=== PATIENT | male | born 1975 | race Caucasian/White ===

== ENCOUNTER 2017-08-08 14:56 | Emergency (ER) | payer SELFPAY ==
[2017-08-08] MEDS ORDERED: PROCHLORPERAZINE EDISYLATE INJ 10 MG/2 ML VIAL IV ONE (17:34)
[2017-08-08] MEDS ORDERED: DIPHENHYDRAMINE HCL 50 MG/ML VIAL IV ONE ×2 (17:34→19:40)
[2017-08-08] MEDS ORDERED: NORMAL SALINE 1000 ML 1,000 ML IV ONE (17:34)
[2017-08-08] MEDS ORDERED: KETOROLAC TROMETHAMINE INJ/PF 30 MG/1 ML SDV IV ONE (17:34)
--- NOTE | 2017-08-08 17:36 | ER Document Report ---
HPI - HPI Patient complains to provider of: Viral illness Onset: Other - 2 weeks Onset/Duration: Persistent Quality of pain: Achy Pain Level: 3 Context: Patient presents complaining of headache pain off and on for the past 2 weeks. Patient also reports nausea and diarrhea. Patient states he has had diarrhea 3 episodes today. Patient reports cough for the past 3 days. Patient denies any vomiting. Patient states that his significant other was here recently with the same symptoms. Associated Symptoms: Nonproductive cough, Diarrhea, Headache, Nausea, Rhinnorhea. denies: Chest pain, Vomiting Exacerbated by: Denies Relieved by: Denies Similar symptoms previously: No Recently seen / treated by doctor: No - ROS ROS below otherwise negative: Yes Systems Reviewed and Negative: Yes All other systems reviewed and negative - CONSTITUTIONAL Constitutional: REPORTS: Chills. DENIES: Fever - EENT EENT: REPORTS: Congestion - NEURO Neurology: REPORTS: Headache - RESPIRATORY Respiratory: REPORTS: Coughing - GASTROINTESTINAL Gastrointestinal: REPORTS: Nausea, Diarrhea. DENIES: Patient vomiting - MUSCULOSKELETAL Musculoskeletal: DENIES: Extremity pain, Back Pain - DERM Skin Color: Normal Skin Problems: None Past Medical History - General Information source: Patient - Social History Smoking Status: Current Every Day Smoker Smoking Education Provided: Yes Frequency of alcohol use: None Drug Abuse: None Occupation: construction Lives with: Spouse/Significant other Family History: Reviewed & Not Pertinent - Medical History Medical History: Negative Surgical Hx: Negative Vertical Provider Document - CONSTITUTIONAL Agree With Documented VS: Yes Exam Limitations: No Limitations General Appearance: WD/WN, No Apparent Distress - INFECTION CONTROL TRAVEL OUTSIDE OF THE [place] IN LAST 30 DAYS: No - HEENT HEENT: Atraumatic, Normocephalic. negative: Pharyngeal Exudate, Pharyngeal Tenderness, Pharyngeal Erythema, Tympanic Membrane Red, Tympanic Membrane Bulging - NECK Neck: Normal Inspection, Supple. negative: Lymphadenopathy-Left, Lymphadenopathy-Right Notes: No meningismus - RESPIRATORY Respiratory: Breath Sounds Normal, No Respiratory Distress, Chest Non-Tender O2 Sat by Pulse Oximetry: 98 - CARDIOVASCULAR Cardiovascular: Regular Rate, Regular Rhythm, No Murmur - GI/ABDOMEN Gastrointestinal: Abdomen Soft, Abdomen Tender - epigastric, No Organomegaly, Normal Bowel Sounds - BACK Back: Normal Inspection. negative: CVA Tenderness-Right, CVA Tenderness-Left - MUSCULOSKELETAL/EXTREMETIES Musculoskeletal/Extremeties: MILADY ESTEBAN - NEURO Level of Consciousness: Awake, Alert, Appropriate Motor/Sensory: No Motor Deficit - DERM Integumentary: Warm, Dry, No Rash Course - Re-evaluation Re-evalutation: 08/08/17 Patient with symptoms consistent with viral illness. Patient without meningeal irritation symptoms. Abdomen soft, nontender. No vomiting or diarrhea during his ER stay. Patient is specifically requesting Phenergan to manage his symptoms as this is what his girlfriend was given and seemed to help. Discussed worsening symptoms that patient should return immediately for. Patient verbalized understanding and agrees with plan of care - Vital Signs Vital signs: Temp Pulse Resp BP Pulse Ox 98.4 F 86 20 118/62 98 08/08/17 15:28 08/08/17 15:28 08/08/17 15:28 08/08/17 15:28 08/08/17 15:28 - Laboratory Result Diagrams: 08/08/17 18:30 08/08/17 18:30 Laboratory results interpreted by me: 08/08/17 19:41 Labs- Entire Visit 08/08/17 08/08/17 18:30 18:30 WBC 9.5 RBC 4.82 Hgb 15.0 Hct 44.4 MCV 92 MCH 31.1 MCHC 33.7 RDW 13.7 Plt Count 295 Seg Neutrophils % 63.6 Lymphocytes % 27.6 Monocytes % 4.9 Eosinophils % 2.5 Basophils % 1.4 Absolute Neutrophils 6.1 Absolute Lymphocytes 2.6 Absolute Monocytes 0.5 Absolute Eosinophils 0.2 Absolute Basophils 0.1 Sodium 140.2 Potassium 4.1 Chloride 106 Carbon Dioxide 29 Anion Gap 5 BUN 15 Creatinine 0.86 Est GFR ( Amer) > 60 Est GFR (Non-Af Amer) > 60 Glucose 81 Calcium 9.0 Total Bilirubin 0.3 Direct Bilirubin 0.3 Neonat Total Bilirubin Not Reportable Neonat Direct Bilirubin Not Reportable Neonat Indirect Bili Not Reportable AST 29 ALT 28 Alkaline Phosphatase 56 Total Protein 6.1 L Albumin 3.6 Lipase 86.2 - Diagnostic Test Radiology reviewed: Reports reviewed Discharge - Discharge Clinical Impression: Nausea, Cough Headache Qualifiers: Headache type: unspecified Headache chronicity pattern: unspecified pattern Intractability: not intractable Qualified Code(s): R51 - Headache Diarrhea Qualifiers: Diarrhea type: unspecified type Qualified Code(s): R19.7 - Diarrhea, unspecified Condition: Stable Disposition: HOME, SELF-CARE Instructions: Acetaminophen, Intravenous Compazine for Headaches ([facility]), Headache ([facility]), Toradol Injection ([facility]), Viral Syndrome ([facility]) Additional Instructions: Return immediately for any new or worsening symptoms Followup with your primary care provider, call tomorrow to make a followup appointment Prescriptions: Butalb/Acetaminophen/Caffeine [Fioricet (50-325-40 mg) Tablet] 1 - 2 tab PO Q4H PRN #12 each PRN Reason: Promethazine HCl [Phenergan 25 mg Tablet] 25 mg PO Q6H PRN #10 tablet PRN Reason: Forms: Smoking Cessation Education, Return to Work Referrals: JODI KOWALSKI MD [NO LOCAL MD] - Follow up tomorrow
--- NOTE | 2017-08-08 17:58 | RADIOLOGY REPORT (SQ) ---
EXAM DESCRIPTION: CHEST PA/LAT COMPLETED DATE/TIME: 08/08/2017 5:47 pm REASON FOR STUDY: cough COMPARISON: None. EXAM PARAMETERS: NUMBER OF VIEWS: two views TECHNIQUE: Digital Frontal and Lateral radiographic views of the chest acquired. RADIATION DOSE: NA LIMITATIONS: none FINDINGS: LUNGS AND PLEURA: No opacities, masses or pneumothorax. No pleural effusion. MEDIASTINUM AND HILAR STRUCTURES: No masses or contour abnormalities. HEART AND VASCULAR STRUCTURES: Heart normal size. No evidence for failure. BONES: No acute findings. HARDWARE: None in the chest. OTHER: No other significant finding. IMPRESSION: NO SIGNIFICANT RADIOGRAPHIC FINDING IN THE CHEST. TECHNICAL DOCUMENTATION: JOB ID: [id number] [employer]- All Rights Reserved Reading location - IP/workstation name: [email or web address]
[2017-08-08 19:00] LABS: ABSOLUTE BASOPHILS # (AUTO) 0.1 10^3/uL (0.0-0.2); ABSOLUTE EOSINOPHILS # (AUTO) 0.2 10^3/uL (0.0-0.6); ABSOLUTE LYMPHOCYTES (AUTO) 2.6 10^3/uL (0.5-4.7); ABSOLUTE MONOCYTES (AUTO) 0.5 10^3/uL (0.1-1.4); ABSOLUTE NEUT (AUTO) 6.1 10^3/uL (1.7-8.2); BASOPHILS % (AUTO) 1.4 % (0-2); EOSINOPHILS % (AUTO) 2.5 % (0-6); HEMATOCRIT 44.4 % (37.9-51.0); LYMPHOCYTES % (AUTO) 27.6 % (13-45); MEAN CORPUSCULAR HEMOGLOBIN 31.1 pg (27.0-33.4); MEAN CORPUSCULAR HGB CONC 33.7 g/dL (32.0-36.0); MEAN CORPUSCULAR VOLUME 92 fl (80-97); MONOCYTES % (AUTO) 4.9 % (3-13); PLATELET COUNT 295 10^3/uL (150-450); RED BLOOD COUNT 4.82 10^6/uL (4.35-5.55); RED CELL DISTRIBUTION WIDTH 13.7 % (11.5-14.0); SEGMENTED NEUTROPHILS % (AUTO) 63.6 % (42-78); TOTAL CELLS COUNTED % (AUTO) 100 %; WHITE BLOOD COUNT 9.5 10^3/uL (4.0-10.5)
[2017-08-08 19:22] LABS: ALANINE AMINOTRANSFERASE 28 U/L (21-72); ALBUMIN 3.6 g/dL (3.5-5.0); ALKALINE PHOSPHATASE 56 U/L (38-126); ANION GAP 5 (5-19); ASPARTATE AMINO TRANSFERASE 29 U/L (17-59); BILIRUBIN,DIRECT 0.3 mg/dL (0.0-0.4); BILIRUBIN,TOTAL 0.3 mg/dL (0.2-1.3); BLOOD UREA NITROGEN 15 mg/dL (7-20); CARBON DIOXIDE 29 mmol/L (22-30); CHLORIDE 106 mmol/L (98-107); GLUCOSE 81 mg/dL (75-110); LIPASE 86.2 U/L (23-300); POTASSIUM 4.1 mmol/L (3.6-5.0); SODIUM 140.2 mmol/L (137-145); TOTAL PROTEIN 6.1 g/dL (6.3-8.2)
[2017-08-08] MEDS ORDERED: BUTALB/ACETAMINOPHEN/CAFFEINE 1 TAB EACH PO ONE (19:40)
[2017-08-08 20:09] VITALS: BP 115/74
== END 2017-08-08 20:09 | disposition home or self-care (01) ==
LOC: ER 14:56
DX: B34.9 Viral infection, unspecified (principal); R11.0 Nausea; R19.7 Diarrhea, unspecified; R05 Cough; F17.210 Nicotine dependence, cigarettes, uncomplicated
CPT/HCPCS: 99284; 96361; 96374; 96375; 36415; 83690; 85025; 80053; 71046; J3490; J1200; J1885; J0780; J7030

== ENCOUNTER 2018-11-02 10:56 | Inpatient (IN) | payer OTHER ==
[~2018-11-02 10:56] MED LIST: ROCURONIUM BROMIDE INJ 50 MG/5 ML VIAL IV ONE
[2018-11-02] MEDS: NORMAL SALINE 1000 ML 1,000 ML IV PRN ×4 (11:00→12:55)
[2018-11-02] MEDS ORDERED: PROPOFOL 1,000 MG/100 ML INFUS..BTL IV ONE (11:02)
[2018-11-02] MEDS ORDERED: PROPOFOL INJ 200 MG/20 ML VIAL IV ONE (11:08)
--- NOTE | 2018-11-02 11:08 | ER Document Report ---
ED Cardiac - General Stated Complaint: POSSIBLE SEIZURE Time Seen by Provider: 11/02/18 11:04 Notes: 42-year-old male to the ER via EMS for altered mental status. Patient was found on the side of the road. Unresponsive. CPR was begun. Apparently patient was seizing. Multiple seizures were witnessed. When EMS arrived they were able to get 2 large-bore IVs in the patient. Patient had a temperature of 101. 5 mg of Ativan as well as 5 mg of Versed given. Patient brought to the emergency department and was being bagged. Was completely unresponsive and with agonal breathing. Oxygen saturation was 90%. Patient was immediately seen at the bedside and immediately intubated. TRAVEL OUTSIDE OF THE [place] IN LAST 30 DAYS: No - Related Data Allergies/Adverse Reactions: No Known Allergies Allergy (Verified 08/08/17 15:00) Past Medical History - General Cannot obtain history due to: Intubated, Unstable vital signs, Altered mental status - Social History Smoking Status: Smoker,Current Status Unk Family History: Reviewed & Not Pertinent Renal/ Medical History: Denies: Hx Peritoneal Dialysis Review of Systems - Review of Systems -: Yes ROS unobtainable due to patient's medical condition Physical Exam - Vital signs Vitals: Resp 39 H 11/02/18 10:57 Interpretation: Tachycardic, Hypoxic, Febrile - General General appearance: Unresponsive In distress: Severe - HEENT Head: Normocephalic, Atraumatic Eyes: Normal Pupils: PERRL Mucous membranes: Dry - Respiratory Respiratory status: Depressed respirations Chest status: Nontender Breath sounds: Normal Chest palpation: Normal - Cardiovascular Rhythm: Tachycardia Heart sounds: Normal auscultation Murmur: No - Abdominal Inspection: Normal Distension: No distension Bowel sounds: Normal Tenderness: Nontender Organomegaly: No organomegaly - Back Back: Normal, Nontender - Extremities General upper extremity: Normal inspection, Nontender, Normal color, Normal temperature General lower extremity: Normal inspection, Nontender, Normal color, Normal temperature. No: Mecca's sign - Neurological Neuro grossly intact: No Orientation: No: AAOx4 Elia Coma Scale Eye Opening: None Elia Coma Scale Verbal: None Chadwick Coma Scale Motor: None Chadwick Coma Scale Total: 3 - Skin Skin Temperature: Warm Skin Moisture: Dry Skin Color: Normal Course - Re-evaluation Re-evalutation: 11/02/18 12:55 Patient was intubated immediately. Placed on monitor. Blood pressure was initially low so 2 L of normal saline ordered. Lactate, ABG blood cultures ordered. Blood pressure began to come up. Patient was placed on propofol drip. Indwelling Aguilar temp showed a temperature of 103. Rapid cooling techniques begun. pH is 7.1. Concern for sepsis versus meningitis so initial dose of Rocephin and vancomycin ordered. Patient maintain on the ventilator. Will admit to the ICU at this time. Drug screen came back extremely elevated for methamphetamine. Likely patient has a heat injury with methamphetamine induced seizures and overdose with potential heat injury. Will maintain sedation and intubation to increase the survivability of potential overwhelming heat injury. We will keep paralysis as well which will help to cure the patient. Rectal Tylenol as well as Toradol given. Radiology will assist with lumbar puncture. Hospitalist has been consulted. Anticipate admit at this time. 11/02/18 12:57 Laboratory 11/02/18 11/02/18 11/02/18 11:01 11:01 11:15 WBC 13.7 H RBC 4.41 Hgb 13.2 L Hct 40.7 MCV 92 MCH 29.9 MCHC 32.4 RDW 14.0 Plt Count 412 Seg Neutrophils % 67.5 Lymphocytes % 25.0 Monocytes % 6.4 Eosinophils % 0.7 Basophils % 0.4 Absolute Neutrophils 9.2 H Absolute Lymphocytes 3.4 Absolute Monocytes 0.9 Absolute Eosinophils 0.1 Absolute Basophils 0.1 PT INR APTT Carbonic Acid HCO3/H2CO3 Ratio ABG pH ABG pCO2 ABG pO2 ABG HCO3 ABG Total CO2 ABG O2 Saturation ABG Base Excess FiO2 Sodium Potassium Chloride Carbon Dioxide Anion Gap BUN Creatinine Est GFR ( Amer) Est GFR (Non-Af Amer) Glucose Calcium Magnesium Total Bilirubin Direct Bilirubin Neonat Total Bilirubin Neonat Direct Bilirubin Neonat Indirect Bili AST ALT Alkaline Phosphatase Creatine Kinase Total Protein Albumin Urine Color DENILSON Urine Appearance SLIGHTLY-CLOUDY Urine pH 5.0 Ur Specific [place] 1.025 Urine Protein 30 H Urine Glucose (UA) NEGATIVE Urine Ketones TRACE H Urine Blood NEGATIVE Urine Nitrite NEGATIVE Urine Bilirubin NEGATIVE Urine Urobilinogen NEGATIVE Ur Leukocyte Esterase NEGATIVE Urine WBC (Auto) 5 Urine RBC (Auto) 16 Squamous Epi Cells Auto <1 Urine Mucus (Auto) MANY Urine Ascorbic Acid NEGATIVE Urine Opiates Screen NEGATIVE Urine Methadone Screen NEGATIVE Ur Barbiturates Screen NEGATIVE Ur Phencyclidine Scrn NEGATIVE Ur Amphetamines Screen U Benzodiazepines Scrn NEGATIVE Urine Cocaine Screen NEGATIVE U Marijuana (THC) Screen UNCONFIRMED POSITIVE Serum Alcohol 11/02/18 11/02/18 11/02/18 11:15 11:15 11:15 WBC RBC Hgb Hct MCV MCH MCHC RDW Plt Count Seg Neutrophils % Lymphocytes % Monocytes % Eosinophils % Basophils % Absolute Neutrophils Absolute Lymphocytes Absolute Monocytes Absolute Eosinophils Absolute Basophils PT 14.4 INR 1.07 APTT 22.9 L Carbonic Acid HCO3/H2CO3 Ratio ABG pH ABG pCO2 ABG pO2 ABG HCO3 ABG Total CO2 ABG O2 Saturation ABG Base Excess FiO2 Sodium 146.8 H Potassium 4.0 Chloride 107 Carbon Dioxide 12 L Anion Gap 28 H BUN 11 Creatinine 1.29 H Est GFR ( Amer) > 60 Est GFR (Non-Af Amer) > 60 Glucose 115 H Calcium 9.8 Magnesium 2.4 H Total Bilirubin 0.4 Direct Bilirubin 0.3 Neonat Total Bilirubin Not Reportable Neonat Direct Bilirubin Not Reportable Neonat Indirect Bili Not Reportable AST 32 ALT 14 L Alkaline Phosphatase 47 Creatine Kinase 169 Total Protein 6.2 L Albumin 4.1 Urine Color Urine Appearance Urine pH Ur Specific [place] Urine Protein Urine Glucose (UA) Urine Ketones Urine Blood Urine Nitrite Urine Bilirubin Urine Urobilinogen Ur Leukocyte Esterase Urine WBC (Auto) Urine RBC (Auto) Squamous Epi Cells Auto Urine Mucus (Auto) Urine Ascorbic Acid Urine Opiates Screen Urine Methadone Screen Ur Barbiturates Screen Ur Phencyclidine Scrn Ur Amphetamines Screen U Benzodiazepines Scrn Urine Cocaine Screen U Marijuana (THC) Screen Serum Alcohol < 10 11/02/18 11:31 WBC RBC Hgb Hct MCV MCH MCHC RDW Plt Count Seg Neutrophils % Lymphocytes % Monocytes % Eosinophils % Basophils % Absolute Neutrophils Absolute Lymphocytes Absolute Monocytes Absolute Eosinophils Absolute Basophils PT INR APTT Carbonic Acid 1.40 H HCO3/H2CO3 Ratio 12:1 ABG pH 7.18 L* ABG pCO2 46.6 H ABG pO2 550.9 H ABG HCO3 16.9 L ABG Total CO2 18.4 L ABG O2 Saturation 99.8 H ABG Base Excess -11.3 FiO2 100% Sodium Potassium Chloride Carbon Dioxide Anion Gap BUN Creatinine Est GFR ( Amer) Est GFR (Non-Af Amer) Glucose Calcium Magnesium Total Bilirubin Direct Bilirubin Neonat Total Bilirubin Neonat Direct Bilirubin Neonat Indirect Bili AST ALT Alkaline Phosphatase Creatine Kinase Total Protein Albumin Urine Color Urine Appearance Urine pH Ur Specific [place] Urine Protein Urine Glucose (UA) Urine Ketones Urine Blood Urine Nitrite Urine Bilirubin Urine Urobilinogen Ur Leukocyte Esterase Urine WBC (Auto) Urine RBC (Auto) Squamous Epi Cells Auto Urine Mucus (Auto) Urine Ascorbic Acid Urine Opiates Screen Urine Methadone Screen Ur Barbiturates Screen Ur Phencyclidine Scrn Ur Amphetamines Screen U Benzodiazepines Scrn Urine Cocaine Screen U Marijuana (THC) Screen Serum Alcohol Cervical Spine CT 11/02/18 11:06 IMPRESSION: NO ACUTE OR SIGNIFICANT FINDINGS IN THE CERVICAL SPINE. Chest X-Ray 11/02/18 11:06 IMPRESSION: 1. LIFE LINES DESCRIBED. 2. NO ACUTE RADIOGRAPHIC FINDING IN THE CHEST. Head CT 11/02/18 11:06 IMPRESSION: NORMAL BRAIN CT WITHOUT CONTRAST. EVIDENCE OF ACUTE STROKE: NO. - Vital Signs Vital signs: Temp Pulse Resp BP Pulse Ox 96.2 F L 15 115/83 100 11/02/18 15:41 11/02/18 15:41 11/02/18 15:41 11/02/18 15:41 - Laboratory Result Diagrams: 11/02/18 11:15 11/02/18 11:15 Laboratory results interpreted by me: 11/02/18 11/02/18 11/02/18 11:01 11:15 11:15 WBC 13.7 H Hgb 13.2 L Absolute Neutrophils 9.2 H APTT Carbonic Acid ABG pH ABG pCO2 ABG pO2 ABG HCO3 ABG Total CO2 ABG O2 Saturation Sodium 146.8 H Carbon Dioxide 12 L Anion Gap 28 H Creatinine 1.29 H Glucose 115 H Lactic Acid Magnesium 2.4 H ALT 14 L Total Protein 6.2 L Urine Protein 30 H Urine Ketones TRACE H 11/02/18 11/02/18 11/02/18 11:15 11:15 11:31 WBC Hgb Absolute Neutrophils APTT 22.9 L Carbonic Acid 1.40 H ABG pH 7.18 L* ABG pCO2 46.6 H ABG pO2 550.9 H ABG HCO3 16.9 L ABG Total CO2 18.4 L ABG O2 Saturation 99.8 H Sodium Carbon Dioxide Anion Gap Creatinine Glucose Lactic Acid 15.8 H Magnesium ALT Total Protein Urine Protein Urine Ketones - EKG Interpretation by Nh EKG shows normal: Ingraham, Intervals, QRS Complexes, ST-T Waves Rate: Tachycardia Procedures - Intubation Orotracheal Airway evaluation: Normal anatomy Mallampati Classification: Class 1 Medications: Diprivan Intubation method: Orotracheal Blade type: Alyson Blade size: 3 Equipment used: Glidescope ETT size: 7.5 ETT secured at: Teeth ETT secured at (cm): 23 Breath Sounds after Intubation: Equal End tidal CO2 confirmed: Yes Ventilator settings: SIMV Post Intubation Xray: Yes Intubation Complications: No complications Critical Care Note - Critical Care Note Total time excluding time spent on procedures (mins): 60 Comments: Tachycardia, hypoxia, airway, vent management Discharge - Discharge Clinical Impression: Acute alteration in mental status, Status epilepticus, Methamphetamine use Heatstroke Qualifiers: Encounter type: initial encounter Qualified Code(s): T67.0XXA - Heatstroke and sunstroke, initial encounter Condition: Good Disposition: ADMITTED INPATIENT Admitting Provider: Lindsey (Hospitalist) Unit Admitted: ICU
[2018-11-02] MEDS ORDERED: ROCURONIUM BROMIDE INJ 50 MG/5 ML VIAL IV ONE (11:09)
[2018-11-02] MEDS: PROPOFOL 1,000 MG/100 ML INFUS..BTL IV PRN ×2 (11:10→15:19)
[2018-11-02] MEDS ORDERED: LEVETIRACETAM 500 MG/NACL-ISO 500 MG/100 ML RTUPB IV ONE ×2 (11:10→23:17)
[2018-11-02 11:28] LABS: APPEARANCE,URINE SLIGHTLY-CLOUDY; BILIRUBIN,URINE NEGATIVE (NEGATIVE); COLOR,URINE AMBER; GLUCOSE, URINE NEGATIVE (NEGATIVE); KETONES,URINE TRACE mg/dL (NEGATIVE); LEUKOCYTE ESTERASE,URINE NEGATIVE (NEGATIVE); NITRITE,URINE NEGATIVE (NEGATIVE); PROTEIN,URINE 30 mg/dL (NEGATIVE); URINE SPECIFIC GRAVITY 1.025; UROBILINOGEN,URINE NEGATIVE mg/dL (<2.0)
[2018-11-02 11:30] LABS: ABSOLUTE BASOPHILS # (AUTO) 0.1 10^3/uL (0.0-0.2); ABSOLUTE EOSINOPHILS # (AUTO) 0.1 10^3/uL (0.0-0.6); ABSOLUTE LYMPHOCYTES (AUTO) 3.4 10^3/uL (0.5-4.7); ABSOLUTE MONOCYTES (AUTO) 0.9 10^3/uL (0.1-1.4); ABSOLUTE NEUT (AUTO) 9.2 10^3/uL (1.7-8.2); BASOPHILS % (AUTO) 0.4 % (0-2); EOSINOPHILS % (AUTO) 0.7 % (0-6); HEMATOCRIT 40.7 % (37.9-51.0); HEMOGLOBIN 13.2 g/dL (13.5-17.0); MEAN CORPUSCULAR HEMOGLOBIN 29.9 pg (27.0-33.4); MEAN CORPUSCULAR HGB CONC 32.4 g/dL (32.0-36.0); MEAN CORPUSCULAR VOLUME 92 fl (80-97); MONOCYTES % (AUTO) 6.4 % (3-13); PLATELET COUNT 412 10^3/uL (150-450); RED BLOOD COUNT 4.41 10^6/uL (4.35-5.55); SEGMENTED NEUTROPHILS % (AUTO) 67.5 % (42-78); TOTAL CELLS COUNTED % (AUTO) 100 %; WHITE BLOOD COUNT 13.7 10^3/uL (4.0-10.5)
[2018-11-02 11:36] LABS: INTERNATIONAL RATION (INR) 1.07; PARTIAL THROMBOPLASTIN TIME 22.9 SEC (23.5-35.8); PROTHROMBIN TIME 14.4 SEC (11.4-15.4)
[2018-11-02 11:47] LABS: URINE BARBITURATES SCREEN NEGATIVE; URINE BENZODIAZEPINES SCREEN NEGATIVE; URINE COCAINE SCREEN NEGATIVE; URINE MARIJUANA (THC) SCREEN UNCONFIRMED POSITIVE; URINE METHADONE SCREEN NEGATIVE; URINE PHENCYCLIDINE SCREEN NEGATIVE
[2018-11-02 11:48] LABS: ARTERIAL BLOOD BASE EXCESS -11.3 mmol/L; ARTERIAL BLOOD HCO3 16.9 mmol/L (20-24); ARTERIAL BLOOD O2 SATURATION 99.8 % (94-98); ARTERIAL BLOOD PCO2 46.6 mmHg (35-45); ARTERIAL BLOOD PO2 550.9 mmHg (80-100); ARTERIAL BLOOD TOTAL CO2 18.4 mmol/L (23-27)
[2018-11-02 11:50] LABS: ARTERIAL BLOOD FIO2 100%
[2018-11-02 11:51] LABS: ARTERIAL BLOOD PH 7.18 (7.35-7.45)
--- NOTE | 2018-11-02 11:56 | RADIOLOGY REPORT (SQ) ---
EXAM DESCRIPTION: CHEST SINGLE VIEW COMPLETED DATE/TIME: 11/02/2018 11:45 am REASON FOR STUDY: ET AND NG TUBE PLACEMENT COMPARISON: None. EXAM PARAMETERS: NUMBER OF VIEWS: One view. TECHNIQUE: Single frontal radiographic view of the chest acquired. RADIATION DOSE: NA LIMITATIONS: None. FINDINGS: LUNGS AND PLEURA: No opacities, masses or pneumothorax. No pleural effusion. MEDIASTINUM AND HILAR STRUCTURES: No masses. Contour normal. HEART AND VASCULAR STRUCTURES: Heart normal in size. Normal vasculature. BONES: No acute findings. HARDWARE: Tip of the endotracheal tube located 3 cm proximal to the linda. The image of the chest d emonstrates the nasogastric tube deviated to the left side of the chest consistent with a location in the airway. The other image of the lower chest and upper abdomen demonstrate the tip of the nasogas tric tube in the region of the stomach. OTHER: No other significant finding. IMPRESSION: 1. LIFE LINES DESCRIBED. 2. NO ACUTE RADIOGRAPHIC FINDING IN THE CHEST. TECHNICAL DOCUMENTATION: JOB ID: [id number] [employer]- All Rights Reserved Reading location - IP/workstation name: [email or web address]
[2018-11-02 11:57] LABS: ALANINE AMINOTRANSFERASE 14 U/L (21-72); ALBUMIN 4.1 g/dL (3.5-5.0); ALKALINE PHOSPHATASE 47 U/L (38-126); ASPARTATE AMINO TRANSFERASE 32 U/L (17-59); BILIRUBIN,DIRECT 0.3 mg/dL (0.0-0.4); BILIRUBIN,TOTAL 0.4 mg/dL (0.2-1.3); BLOOD UREA NITROGEN 11 mg/dL (7-20); CALCIUM 9.8 mg/dL (8.4-10.2); CHLORIDE 107 mmol/L (98-107); GLUCOSE 115 mg/dL (75-110); TOTAL PROTEIN 6.2 g/dL (6.3-8.2)
[2018-11-02] MEDS ORDERED: CEFTRIAXONE 2 GM/D5W RTU 2 GM/50 ML RTUPB IV ONE (11:57)
[2018-11-02] MEDS ORDERED: KETOROLAC TROMETHAMINE INJ/PF 30 MG/1 ML SDV IV ONE (11:57)
[2018-11-02 11:58] LABS: ALCOHOL < 10 mg/dL (NONE DETECTED)
[2018-11-02 12:02] LABS: ANION GAP 28 (5-19); CARBON DIOXIDE 12 mmol/L (22-30); SODIUM 146.8 mmol/L (137-145)
--- NOTE | 2018-11-02 12:08 | RADIOLOGY REPORT (SQ) ---
EXAM DESCRIPTION: CT CERVICAL SPINE WITHOUT COMPLETED DATE/TIME: 11/02/2018 11:57 am REASON FOR STUDY: found down COMPARISON: 12/14/2009. TECHNIQUE: Axial images acquired through the cervical spine without intravenous contrast. Images re viewed with lung, soft tissue and bone windows. Reconstructed coronal and sagittal MPR images review ed. Images stored on PACS. All CT scanners at this facility use dose modulation, iterative reconstruction, and/or weight based d osing when appropriate to reduce radiation dose to as low as reasonably achievable (ALARA). [facility]: Dose Right [facility]: CareDose [facility]: Dose Right [facility]: Teradose 4D [facility]: [employer] RADIATION DOSE: CT Rad equipment meets quality standard of care and radiation dose reduction techniq ues were employed. CTDIvol: 20.5 mGy. DLP: 438 mGy-cm. mGy. LIMITATIONS: None. FINDINGS: ALIGNMENT: Anatomic. MINERALIZATION: Normal. VERTEBRAL BODIES: No fractures or dislocation. DISCS: No significant disc disease. FACETS, LATERAL MASSES, POSTERIOR ELEMENTS: No fractures. No dislocation. No acute findings. HARDWARE: None in the spine. VISUALIZED RIBS: No fractures. LUNG APICES AND SOFT TISSUES: No significant or acute findings. OTHER: No other significant finding. IMPRESSION: NO ACUTE OR SIGNIFICANT FINDINGS IN THE CERVICAL SPINE. TECHNICAL DOCUMENTATION: JOB ID: [id number] Quality ID # [id number]: Final reports with documentation of one or more dose reduction techniques (e.g., Au tomated exposure control, adjustment of the mA and/or kV according to patient size, use of iterative reconstruction technique) 2010 [employer]- All Rights Reserved Reading location - IP/workstation name: [email or web address]
--- NOTE | 2018-11-02 12:09 | RADIOLOGY REPORT (SQ) ---
EXAM DESCRIPTION: CT HEAD WITHOUT COMPLETED DATE/TIME: 11/02/2018 11:57 am REASON FOR STUDY: altered COMPARISON: 12/14/2009. TECHNIQUE: Axial images acquired through the brain without intravenous contrast. Images reviewed wi th bone, brain and subdural windows. Additional sagittal and coronal reconstructions were generated. Images stored on PACS. All CT scanners at this facility use dose modulation, iterative reconstruction, and/or weight based d osing when appropriate to reduce radiation dose to as low as reasonably achievable (ALARA). [facility]: Dose Right [facility]: CareDose [facility]: Dose Right [facility]: Teradose 4D [facility]: [employer] RADIATION DOSE: CT Rad equipment meets quality standard of care and radiation dose reduction techniq ues were employed. CTDIvol: 53.2 mGy. DLP: 1044 mGy-cm. mGy. LIMITATIONS: None. FINDINGS: VENTRICLES: Normal size and contour. CEREBRUM: No masses. No hemorrhage. No midline shift. No evidence for acute infarction. Normal gra y/white matter differentiation. No areas of low density in the white matter. CEREBELLUM: No masses. No hemorrhage. No alteration of density. No evidence for acute infarction. EXTRAAXIAL SPACES: No fluid collections. No masses. ORBITS AND GLOBE: No intra- or extraconal masses. Normal contour of globe without masses. CALVARIUM: No fracture. PARANASAL SINUSES: No fluid or mucosal thickening. SOFT TISSUES: No mass or hematoma. OTHER: No other significant finding. IMPRESSION: NORMAL BRAIN CT WITHOUT CONTRAST. EVIDENCE OF ACUTE STROKE: NO. COMMENT: Quality ID # 436: Final reports with documentation of one or more dose reduction techniques (e.g., Automated exposure control, adjustment of the mA and/or kV according to patient size, use of iterative reconstruction technique) TECHNICAL DOCUMENTATION: JOB ID: [id number] [employer]- All Rights Reserved Reading location - IP/workstation name: [email or web address]
[2018-11-02] MEDS ORDERED: VANCOMYCIN HCL INJ 1000 MG VIAL IV ONE (12:34)
[2018-11-02] MEDS ORDERED: FENTANYL CITRATE INJ/PF 250 MCG/5 ML AMPULE IV ONE (12:45)
[2018-11-02] MEDS ORDERED: VECURONIUM BROMIDE INJ 10 MG VIAL IV ONE (12:46)
[2018-11-02] MEDS ORDERED: FENTANYL CITRATE INJ/PF 100 MCG/2 ML AMPUL ONE (12:50)
[2018-11-02] MEDS ORDERED: VANCOMYCIN HCL 0 MG in DEXTROSE 5%-WATER 250 ML IV NR (13:00)
--- NOTE | 2018-11-02 13:15 | EKG REPORT ---
SEVERITY:- BORDERLINE ECG - SINUS TACHYCARDIA BORDERLINE R WAVE PROGRESSION, ANTERIOR LEADS BORDERLINE PROLONGED QT INTERVAL : Confirmed by: Chace Arora MD 02-Nov-2018 13:14:35
[2018-11-02] MEDS ORDERED: DEXAMETHASONE SOD PHOS INJ 10 MG/1 ML VIAL IV ONE (13:30)
[2018-11-02] MEDS ORDERED: NORMAL SALINE 1000 ML 1,000 ML IV ONE (15:01)
[2018-11-02 15:05] LABS: ARTERIAL BLOOD BASE EXCESS -1.6 mmol/L; ARTERIAL BLOOD H2CO3 1.41 mmol/L (1.05-1.35); ARTERIAL BLOOD HCO3 24.5 mmol/L (20-24); ARTERIAL BLOOD O2 SATURATION 99.6 % (94-98); ARTERIAL BLOOD PCO2 46.7 mmHg (35-45); ARTERIAL BLOOD PH 7.34 (7.35-7.45); ARTERIAL BLOOD PO2 260.3 mmHg (80-100); ARTERIAL BLOOD TOTAL CO2 25.9 mmol/L (23-27)
[2018-11-02 15:06] LABS: ARTERIAL BLOOD FIO2 60%
[2018-11-02 15:21] LABS: GLUCOSE,CSF 64 mg/dL (40-70); PROTEIN,CSF 39 mg/dL (12-60)
--- NOTE | 2018-11-02 15:27 | RADIOLOGY REPORT (SQ) ---
EXAM DESCRIPTION: LUMBAR PUNCTURE; FLUORO/NEEDLE PLACEMENT COMPLETED DATE/TIME: 11/02/2018 2:45 pm REASON FOR STUDY: LP for AMS and fever; need LP for altered mental , seizure COMPARISON: None. FLUOROSCOPY TIME: 0.3 minutes. 1 images saved to PACS. TECHNIQUE: Fluoroscopic guided lumbar puncture with opening and closing pressures. LIMITATIONS: None. PROCEDURE: After written consent and assessment were obtained, the patient was brought into the fluo roscopy room and placed prone on the table. The patient's lower back was prepped in a sterile fashion and an entry site was selected under live fluoroscopic guidance. The entry site was anesthetized wit h 1% lidocaine. A 18 gauge needle was advanced through the skin and into the thecal sac at the level of L 2 -L 3 . An opening pressure of 22 units was obtained. After approximately 9.5 ml of CSF was bimal ined, a closing pressure of 16 units was obtained. The needle was removed and a sterile bandage was p laced of the site. Specimens were sent to the lab for testing. A fluoroscopic spot image was saved to PACS confirming level access. FINDINGS: Clear CSF IMPRESSION: Lumbar puncture under fluoroscopy. No immediate complication. COMMENT: Patient medication list reviewed: Yes- Quality ID# [id number]:Eligible professional attests to doc umenting in the medical record they obtained, updated, or reviewed the patient's current medications. Quality ID 145: Final reports for procedures using fluoroscopy that document radiation exposure indic es, or exposure time and number of fluorographic images (if radiation exposure indices are not availa ble) TECHNICAL DOCUMENTATION: Job ID: [id number] [employer]- All Rights Reserved Reading location - IP/workstation name: [email or web address]
[2018-11-02 15:29] LABS: APPEARANCE ALL TUBES CLEAR; COLOR ALL TUBES COLORLESS; CSF TUBE NUMBER 1
[2018-11-02 15:30] LABS: CSF TOTAL VOLUME 9.5 CC; RED BLOOD CELL,CSF 1 /uL (0-10); VOLUME TUBE 2 2.5 CC
[2018-11-02 15:31] LABS: WHITE BLOOD CELL,CSF 1 /uL (0-5)
[2018-11-02 15:37] LABS: APPEARANCE ALL TUBES CLEAR; COLOR ALL TUBES COLORLESS; CSF TOTAL VOLUME 9.5 CC; CSF TUBE NUMBER 4; VOLUME TUBE 2 2.5 CC
[2018-11-02 15:38] LABS: RED BLOOD CELL,CSF 0 /uL (0-10); WHITE BLOOD CELL,CSF 1 /uL (0-5)
--- NOTE | 2018-11-02 15:38 | PDOC H&P ---
History of Present Illness Patient complains of: seizures History of Present Illness: [place] is a 42 year old male who was brought in by EMS. Patient was reportedly found unresponsive on the roadside by civilians. Per EMS report, patient was noted to have agonal breathing had 8-9 episodes of tonic-clonic seizures in route to the hospital with each episode lasting close to 60 seconds. Upon arrival, patient was obtunded and was subsequently intubated. He was also noted to be febrile. UDS was also positive for amphetamines. Social History Smoking Status: Unknown if Ever Smoked Family History Family History: Reviewed & Not Pertinent, Other - Unobtainable at the moment Parental Family History Reviewed: No - Unobtainable at the moment due to being intubated and no family around Children Family History Reviewed: No - As mentioned Sibling(s) Family History Reviewed.: No - as mentioned Medication/Allergy Home Medications: Unobtainable 11/02/18 Allergies/Adverse Reactions: No Known Allergies Allergy (Verified 08/08/17 15:00) Review of Systems ROS unobtainable: Due to endotracheal tube Physical Exam Vital Signs: Temp Pulse Resp BP Pulse Ox 100.9 F H 22 H 172/95 H 100 11/02/18 12:31 11/02/18 12:31 11/02/18 12:31 11/02/18 12:31 Intake & Output 11/01/18 11/02/18 11/03/18 06:59 06:59 06:59 Intake Total 2676 Balance 2676 Weight 190 lb 4.143 oz General appearance: PRESENT: other - Intubated, sedated Head exam: PRESENT: atraumatic, normocephalic Eye exam: PRESENT: conjunctiva pink, EOMI, PERRLA. ABSENT: scleral icterus Ear exam: PRESENT: normal external ear exam Neck exam: ABSENT: carotid bruit, JVD, lymphadenopathy, thyromegaly Respiratory exam: PRESENT: clear to auscultation aime. ABSENT: rales, rhonchi, wheezes Cardiovascular exam: PRESENT: RRR. ABSENT: diastolic murmur, rubs, systolic murmur Pulses: PRESENT: normal dorsalis pedis pul GI/Abdominal exam: PRESENT: normal bowel sounds, soft. ABSENT: distended, guarding, mass, organolmegaly, rebound, tenderness Rectal exam: PRESENT: deferred Neurological exam: PRESENT: other - Intubated, sedated, no nuchal rigidity Results Laboratory Results: 11/02/18 11:15 11/02/18 11:15 11/02/18 11/02/18 11/02/18 11:01 11:15 11:15 WBC 13.7 H RBC 4.41 Hgb 13.2 L Hct 40.7 MCV 92 MCH 29.9 MCHC 32.4 RDW 14.0 Plt Count 412 Seg Neutrophils % 67.5 Lymphocytes % 25.0 Monocytes % 6.4 Eosinophils % 0.7 Basophils % 0.4 Absolute Neutrophils 9.2 H Absolute Lymphocytes 3.4 Absolute Monocytes 0.9 Absolute Eosinophils 0.1 Absolute Basophils 0.1 Carbonic Acid HCO3/H2CO3 Ratio ABG pH ABG pCO2 ABG pO2 ABG HCO3 ABG O2 Saturation ABG Base Excess FiO2 Sodium 146.8 H Potassium 4.0 Chloride 107 Carbon Dioxide 12 L Anion Gap 28 H BUN 11 Creatinine 1.29 H Est GFR ( Amer) > 60 Est GFR (Non-Af Amer) > 60 Glucose 115 H Calcium 9.8 Magnesium 2.4 H Total Bilirubin 0.4 AST 32 ALT 14 L Alkaline Phosphatase 47 Total Protein 6.2 L Albumin 4.1 Urine Color [place] Urine Appearance SLIGHTLY-CLOUDY Urine pH 5.0 Ur Specific [place] 1.025 Urine Protein 30 H Urine Glucose (UA) NEGATIVE Urine Ketones TRACE H Urine Blood NEGATIVE Urine Nitrite NEGATIVE Ur Leukocyte Esterase NEGATIVE Urine WBC (Auto) 5 Urine RBC (Auto) 16 11/02/18 11:31 WBC RBC Hgb Hct MCV MCH MCHC RDW Plt Count Seg Neutrophils % Lymphocytes % Monocytes % Eosinophils % Basophils % Absolute Neutrophils Absolute Lymphocytes Absolute Monocytes Absolute Eosinophils Absolute Basophils Carbonic Acid 1.40 H HCO3/H2CO3 Ratio 12:1 ABG pH 7.18 L* ABG pCO2 46.6 H ABG pO2 550.9 H ABG HCO3 16.9 L ABG O2 Saturation 99.8 H ABG Base Excess -11.3 FiO2 100% Sodium Potassium Chloride Carbon Dioxide Anion Gap BUN Creatinine Est GFR ( Amer) Est GFR (Non-Af Amer) Glucose Calcium Magnesium Total Bilirubin AST ALT Alkaline Phosphatase Total Protein Albumin Urine Color Urine Appearance Urine pH Ur Specific [place] Urine Protein Urine Glucose (UA) Urine Ketones Urine Blood Urine Nitrite Ur Leukocyte Esterase Urine WBC (Auto) Urine RBC (Auto) 11/02/18 11:15 Creatine Kinase 169 Impressions: Cervical Spine CT 11/02/18 11:06 IMPRESSION: NO ACUTE OR SIGNIFICANT FINDINGS IN THE CERVICAL SPINE. Chest X-Ray 11/02/18 11:06 IMPRESSION: 1. LIFE LINES DESCRIBED. 2. NO ACUTE RADIOGRAPHIC FINDING IN THE CHEST. Head CT 11/02/18 11:06 IMPRESSION: NORMAL BRAIN CT WITHOUT CONTRAST. EVIDENCE OF ACUTE STROKE: NO. Assessment and Plan - Diagnosis (1) Acute respiratory failure with hypoxia Is this a current diagnosis for this admission?: Yes Plan: Secondary to status epilepticus. Currently intubated. Decrease FiO2 from 100% to 60%. Repeat ABG. (2) Methamphetamine use Is this a current diagnosis for this admission?: Yes Plan: UDS positive for methamphetamine as mentioned. (3) Status epilepticus Is this a current diagnosis for this admission?: Yes Plan: Patient reportedly had 8-9 episodes of chronic tonic seizures en route. He is presenting with fever mild leukocytosis. There is no nuchal rigidity. Will empirically start patient on antibiotics for questionable meningitis. He is scheduled for a lumbar puncture soon. (4) Lactic acidosis Is this a current diagnosis for this admission?: Yes Plan: Patient has received 4 L of fluid bolus in the ER. Continue normal saline at 125 cc/h. Repeat lactic acid. (5) Acute kidney injury Is this a current diagnosis for this admission?: Yes Plan: IV fluids as mentioned. Repeat BMP. - Time Time Spent with patient: 25-34 minutes
[2018-11-02] MEDS: DEXAMETHASONE SOD PHOSPHATE INJ 4 MG/1 ML VIAL IV SCH ×2 (16:36→21:54)
[2018-11-02] MEDS: MIDAZOLAM HCL 50 MG/100 ML RTUINJ IV PRN ×2 (16:43→23:32)
[2018-11-02] MEDS ORDERED: VANCOMYCIN HCL 1,250 MG in DEXTROSE 5%-WATER 250 ML IV SCH (18:00)
[2018-11-02] MEDS: CEFTRIAXONE 2 GM/D5W RTU 2 GM/50 ML RTUPB IV SCH (21:53)
[2018-11-02] MEDS: HEPARIN SOD (PORCINE) 5,000 UNIT/ML 1 ML SYRINGE SUBCUT SCH (21:54)
[2018-11-02] MEDS ORDERED: VANCOMYCIN HCL INJ 1000 MG VIAL ONE (22:23)
[2018-11-02] MEDS ORDERED: VANCOMYCIN HCL INJ 500 MG VIAL ONE (22:24)
[2018-11-02] MEDS: VANCOMYCIN HCL 1,250 MG in DEXTROSE 5%-WATER 250 ML IV SCH (22:47)
[2018-11-02] MEDS: LEVETIRACETAM 500 MG/NACL-ISO 500 MG/100 ML RTUPB IV SCH (23:30)
[2018-11-03] MEDS: DEXAMETHASONE SOD PHOSPHATE INJ 4 MG/1 ML VIAL IV SCH (04:35)
[2018-11-03] MEDS: MIDAZOLAM HCL 50 MG/100 ML RTUINJ IV PRN ×6 (05:49→22:08)
[2018-11-03] MEDS: NORMAL SALINE 1000 ML 1,000 ML IV PRN ×2 (07:54→16:32)
[2018-11-03] MEDS: HEPARIN SOD (PORCINE) 5,000 UNIT/ML 1 ML SYRINGE SUBCUT SCH (09:18)
[2018-11-03] MEDS: VANCOMYCIN HCL 1,250 MG in DEXTROSE 5%-WATER 250 ML IV SCH (09:18)
[2018-11-03] MEDS: CEFTRIAXONE 2 GM/D5W RTU 2 GM/50 ML RTUPB IV SCH ×2 (09:19→22:08)
[2018-11-03] MEDS: LEVETIRACETAM 500 MG/NACL-ISO 500 MG/100 ML RTUPB IV SCH (12:32)
[2018-11-03] MEDS: PANTOPRAZOLE SODIUM 40 MG VIAL IV SCH ×2 (13:01→22:08)
[2018-11-03] MEDS: PROPOFOL 1,000 MG/100 ML INFUS..BTL IV PRN ×2 (13:01→20:10)
--- NOTE | 2018-11-03 13:46 | NEURO WORKBENCH EEG REPORT ---
EEG Report Patient: Samir Acosta ID: [id number] Referring Doctor: Gabriele Portillo Date: 11/03/18 Reason for study: Evaluate Epileptiform activity Medications: Propofol, Keppra, Rocephin, Decadron, Heparin Inj History: This is a 42 year old male with a history of depression with reported status epilepticus who was intubated on November 01, 2018. This EEG was requested for evaluation of epileptiform activity. EEG Interpretation This EEG was recorded in the ICU and the patient is intubated and sedated. There were no apparent spontaneous eye openings or closings, but the fill technician manually opened and closed the patients eyes multiple times. There was no reactivity of the background EEG to manual eye opening and closure. The background EEG shows prominent, diffuse, and frontally predominant 10-12 Hz alpha activity with infrequent intermixed diffuse polymorphic delta and theta activity. There were no asymmetries in amplitude or frequencies. Photic stimulation was done and photic driving was not present. There was no normal sleep architecture present. There was no epileptiform activity (meaning no sharp waves or spikes), and there were no seizures noted. The EKG showed a regular rhythm with rates typically in the 55-60 range. EEG Impression This is a markedly abnormal EEG and consistent with alpha coma, which implies diffuse cerebral dysfunction which is non-specific for etiology. Alpha coma is most commonly seen in anoxic encephalopathy, but in this setting would be most attributable to the sedation with propofol unless this pattern persists after propofol is discontinued. Alpha coma can also be seen with brainstem lesions (pontomesencephalic level) or high voltage electrical injury. It is noted that the patient was admitted with status epilepticus, and there were no epileptiform abnormalities or seizures noted on this EEG. If there is strong concern for clinical or sub-clinical seizure activity then long-term EEG monitoring would be advised or additional repeat routine EEGs if long-term monitoring is not available. INTERPRETING NEUROLOGIST: Shashank Uriostegui MD Board certified by the [place] [employer] in Neurology, Clinical Neurophysiology, and Sleep Medicine [facility]
--- NOTE | 2018-11-03 14:58 | PDOC PROGRESS REPORT ---
Subjective Progress Note for:: 11/03/18 Subjective:: This is a 42 year old male who was brought in by EMS. Patient was reportedly found unresponsive on the roadside by civilians. Per EMS report, he had multiple seizures. Upon arrival, patient was obtunded and was subsequently intubated. He was also noted to be febrile. UDS was also positive for amphetamines. No acute event overnight. Patient is currently sedated and intubated and saturating well on 30% FiO2. Sister did come in today does report that patient i s having issues with substance abuse. Patient became agitated when attempt to wean off sedation was done. Reason For Visit: STATUS EPILEPTICUS,ACUTE RESPIRATORY FAILURE Physical Exam Vital Signs: Temp Pulse Resp BP Pulse Ox 98.2 F 56 L 17 125/76 98 11/03/18 14:35 11/03/18 12:00 11/03/18 14:35 11/03/18 14:35 11/03/18 14:35 Intake & Output 11/02/18 11/03/18 11/04/18 06:59 06:59 06:59 Intake Total 4433 370 Output Total 2460 500 Balance 1973 -130 Weight 175 lb 0.752 oz General appearance: PRESENT: other - Sedated, intubated Eye exam: PRESENT: conjunctiva pink, EOMI, PERRLA. ABSENT: scleral icterus Ear exam: PRESENT: normal external ear exam Mouth exam: PRESENT: moist, tongue midline Neck exam: ABSENT: carotid bruit, JVD, lymphadenopathy, thyromegaly Respiratory exam: PRESENT: clear to auscultation aime. ABSENT: rales, rhonchi, wheezes Cardiovascular exam: PRESENT: RRR. ABSENT: diastolic murmur, rubs, systolic murmur Pulses: PRESENT: normal dorsalis pedis pul GI/Abdominal exam: PRESENT: normal bowel sounds, soft. ABSENT: distended, guarding, mass, organolmegaly, rebound, tenderness Rectal exam: PRESENT: deferred Neurological exam: PRESENT: other - Sedated, [id number] Results Laboratory Results: 11/02/18 11:15 11/02/18 11:15 11/02/18 11/02/18 11/02/18 14:21 14:21 14:28 Carbonic Acid HCO3/H2CO3 Ratio ABG pH ABG pCO2 ABG pO2 ABG HCO3 ABG O2 Saturation ABG Base Excess FiO2 Lactic Acid Fluid Tube Number 1 4 CSF Volume 9.5 9.5 CSF Appearance CLEAR CLEAR CSF Color COLORLESS COLORLESS CSF WBC 1 1 CSF RBC 1 0 CSF Glucose 64 CSF Total Protein 39 11/02/18 11/02/18 14:52 18:31 Carbonic Acid 1.41 H HCO3/H2CO3 Ratio 17:1 ABG pH 7.34 L ABG pCO2 46.7 H ABG pO2 260.3 H ABG HCO3 24.5 H ABG O2 Saturation 99.6 H ABG Base Excess -1.6 FiO2 60% Lactic Acid 0.8 Fluid Tube Number CSF Volume CSF Appearance CSF Color CSF WBC CSF RBC CSF Glucose CSF Total Protein 11/02/18 11:15 Creatine Kinase 169 Impressions: Cervical Spine CT 11/02/18 11:06 IMPRESSION: NO ACUTE OR SIGNIFICANT FINDINGS IN THE CERVICAL SPINE. Chest X-Ray 11/02/18 11:06 IMPRESSION: 1. LIFE LINES DESCRIBED. 2. NO ACUTE RADIOGRAPHIC FINDING IN THE CHEST. Head CT 11/02/18 11:06 IMPRESSION: NORMAL BRAIN CT WITHOUT CONTRAST. EVIDENCE OF ACUTE STROKE: NO. Guidance Fluoroscopy 11/02/18 12:34 IMPRESSION: Lumbar puncture under fluoroscopy. No immediate complication. Lumbar Puncture 11/02/18 13:00 IMPRESSION: Lumbar puncture under fluoroscopy. No immediate complication. Assessment and Plan - Diagnosis (1) Acute respiratory failure with hypoxia Is this a current diagnosis for this admission?: Yes Plan: 11/02: Secondary to status epilepticus. Currently intubated. Decrease FiO2 from 100% to 60%. Repeat ABG. 11/03: Currently saturating well on 30% FiO2. (2) Methamphetamine use Is this a current diagnosis for this admission?: Yes Plan: UDS positive for methamphetamine as mentioned. (3) Status epilepticus Is this a current diagnosis for this admission?: Yes Plan: 11/02: Patient reportedly had 8-9 episodes of chronic tonic seizures en route. He is presenting with fever mild leukocytosis. There is no nuchal rigidity. Will empirically start patient on antibiotics for questionable meningitis. He is scheduled for a lumbar puncture soon. 11/03: CSF analysis was unremarkable. Discontinue vancomycin and dexamethasone. (4) Lactic acidosis Is this a current diagnosis for this admission?: Yes Plan: Promptly resolved with IV fluids. (5) Acute kidney injury Is this a current diagnosis for this admission?: Yes Plan: IV fluids as mentioned. Repeat BMP. - Time Time Spent with patient: 25-34 minutes
--- NOTE | 2018-11-03 15:12 | PSYCHOLOGICAL NOTE ---
Psych Note - Psych Note Date seen by psych provider: 11/03/18 Psych Note: Reason for Consult: Overdose Patient arrived to [facility] via EMS after reportedly found unresponsive on the roadside by civilians. Patient is currently intubated. Please contact the Behavioral Health Team when extubated and patient is able to engage in evaluation. Chart review conducted: Attending nurse noted: Pt. significant other at pt. bedside pacing and jittery asking if pt. had taken heroin. This RN explains pt. toxicology report to which pt. significant other insists pt. does not use drugs or drink ETOH. See lab results. There is concern the patient overdosed on drugs and the patient's family reports the patient had expressed recent suicidal thoughts.
[2018-11-03 15:39] LABS: ABSOLUTE LYMPHOCYTES (AUTO) 0.6 10^3/uL (0.5-4.7); ABSOLUTE MONOCYTES (AUTO) 0.6 10^3/uL (0.1-1.4); ABSOLUTE NEUT (AUTO) 8.5 10^3/uL (1.7-8.2); BASOPHILS % (AUTO) 0.2 % (0-2); HEMATOCRIT 41.2 % (37.9-51.0); HEMOGLOBIN 13.7 g/dL (13.5-17.0); LYMPHOCYTES % (AUTO) 5.9 % (13-45); MEAN CORPUSCULAR HEMOGLOBIN 30.1 pg (27.0-33.4); MEAN CORPUSCULAR HGB CONC 33.3 g/dL (32.0-36.0); MEAN CORPUSCULAR VOLUME 90 fl (80-97); MONOCYTES % (AUTO) 6.4 % (3-13); PLATELET COUNT 242 10^3/uL (150-450); RED BLOOD COUNT 4.56 10^6/uL (4.35-5.55); RED CELL DISTRIBUTION WIDTH 14.1 % (11.5-14.0); SEGMENTED NEUTROPHILS % (AUTO) 87.5 % (42-78); TOTAL CELLS COUNTED % (AUTO) 100 %; WHITE BLOOD COUNT 9.7 10^3/uL (4.0-10.5)
[2018-11-03 15:57] LABS: ANION GAP 7 (5-19); BLOOD UREA NITROGEN 20 mg/dL (7-20); CALCIUM 8.8 mg/dL (8.4-10.2); CARBON DIOXIDE 26 mmol/L (22-30); CHLORIDE 112 mmol/L (98-107); GLUCOSE 119 mg/dL (75-110); POTASSIUM 4.4 mmol/L (3.6-5.0); SODIUM 144.7 mmol/L (137-145)
[2018-11-04] MEDS: LEVETIRACETAM 500 MG/NACL-ISO 500 MG/100 ML RTUPB IV SCH ×3 (00:01→23:49)
[2018-11-04] MEDS: PROPOFOL 1,000 MG/100 ML INFUS..BTL IV PRN ×6 (00:02→20:43)
[2018-11-04] MEDS: NORMAL SALINE 1000 ML 1,000 ML IV PRN ×3 (01:08→18:54)
[2018-11-04] MEDS: MIDAZOLAM HCL 50 MG/100 ML RTUINJ IV PRN ×7 (01:52→20:44)
[2018-11-04 08:50] LABS: ABSOLUTE BASOPHILS # (AUTO) 0.1 10^3/uL (0.0-0.2); ABSOLUTE LYMPHOCYTES (AUTO) 1.7 10^3/uL (0.5-4.7); ABSOLUTE MONOCYTES (AUTO) 0.6 10^3/uL (0.1-1.4); ABSOLUTE NEUT (AUTO) 5.9 10^3/uL (1.7-8.2); BASOPHILS % (AUTO) 0.7 % (0-2); EOSINOPHILS % (AUTO) 0.1 % (0-6); HEMATOCRIT 38.6 % (37.9-51.0); HEMOGLOBIN 12.7 g/dL (13.5-17.0); LYMPHOCYTES % (AUTO) 20.8 % (13-45); MEAN CORPUSCULAR HEMOGLOBIN 29.8 pg (27.0-33.4); MEAN CORPUSCULAR VOLUME 90 fl (80-97); MONOCYTES % (AUTO) 6.8 % (3-13); PLATELET COUNT 224 10^3/uL (150-450); RED BLOOD COUNT 4.28 10^6/uL (4.35-5.55); RED CELL DISTRIBUTION WIDTH 14.2 % (11.5-14.0); SEGMENTED NEUTROPHILS % (AUTO) 71.6 % (42-78); TOTAL CELLS COUNTED % (AUTO) 100 %; WHITE BLOOD COUNT 8.2 10^3/uL (4.0-10.5)
[2018-11-04 09:08] LABS: BLOOD UREA NITROGEN 20 mg/dL (7-20); CALCIUM 8.7 mg/dL (8.4-10.2); GLUCOSE 78 mg/dL (75-110)
[2018-11-04 09:09] LABS: ANION GAP 3 (5-19); CARBON DIOXIDE 29 mmol/L (22-30); CHLORIDE 114 mmol/L (98-107); SODIUM 145.9 mmol/L (137-145)
--- NOTE | 2018-11-04 09:10 | RADIOLOGY REPORT (SQ) ---
EXAM DESCRIPTION: CHEST SINGLE VIEW COMPLETED DATE/TIME: 11/04/2018 8:45 am REASON FOR STUDY: assess infiltrates,congestion COMPARISON: 11/02/2018 NUMBER OF VIEWS: One view. TECHNIQUE: Single frontal radiographic image of the chest acquired. LIMITATIONS: None. FINDINGS: LUNGS AND PLEURA: No infiltrate. No pneumothorax. MEDIASTINUM AND HEART: Stable heart size and mediastinal structures. SUPPORT DEVICES: Appropriate location without change. BONY STRUCTURES: No acute findings. HARDWARE: None. OTHER: No other significant finding. IMPRESSION: No infiltrate or pneumothorax. Reading location - IP/workstation name: [email or web address]
[2018-11-04] MEDS: PANTOPRAZOLE SODIUM 40 MG VIAL IV SCH ×2 (09:37→21:26)
[2018-11-04] MEDS: CEFTRIAXONE 2 GM/D5W RTU 2 GM/50 ML RTUPB IV SCH (09:37)
[2018-11-04] MEDS ORDERED: CEFTRIAXONE 2 GM/D5W RTU 2 GM/50 ML RTUPB IV SCH (10:00)
--- NOTE | 2018-11-04 11:12 | PDOC PROGRESS REPORT ---
Subjective Progress Note for:: 11/04/18 Subjective:: This is a 42 year old male who was brought in by EMS. Patient was reportedly found unresponsive on the roadside by civilians. Per EMS report, he had multiple seizures. Upon arrival, patient was obtunded and was subsequently intubated. He was also noted to be febrile. UDS was also positive for amphetamines. 11/03: Patient is currently sedated and intubated and saturating well on 30% FiO2. Sister did come in today does report that patient is having issues with s ubstance abuse. Patient became agitated when attempt to wean off sedation was done. 11/04: No acute event overnight. Remains sedated and intubated. Saturating well on minimal vent settings. Will attempt again to wean off sedation today and proceed with weaning trials today. Reason For Visit: STATUS EPILEPTICUS,ACUTE RESPIRATORY FAILURE Physical Exam Vital Signs: Temp Pulse Resp BP Pulse Ox 97.5 F 69 16 115/71 99 11/04/18 06:00 11/03/18 20:00 11/04/18 06:00 11/04/18 05:28 11/04/18 08:59 Intake & Output 11/03/18 11/04/18 11/05/18 06:59 06:59 06:59 Intake Total 4433 3368 1207 Output Total 2460 2775 75 Balance 4863 107 9277 Weight 175 lb 0.752 oz 175 lb 14.862 oz General appearance: PRESENT: other Head exam: PRESENT: atraumatic, normocephalic Eye exam: PRESENT: conjunctiva pink, EOMI, PERRLA. ABSENT: scleral icterus Ear exam: PRESENT: normal external ear exam Mouth exam: PRESENT: moist, tongue midline Neck exam: ABSENT: carotid bruit, JVD, lymphadenopathy, thyromegaly Respiratory exam: PRESENT: clear to auscultation aime. ABSENT: rales, rhonchi, wheezes Cardiovascular exam: PRESENT: RRR. ABSENT: diastolic murmur, rubs, systolic murmur Pulses: PRESENT: normal dorsalis pedis pul GI/Abdominal exam: PRESENT: normal bowel sounds, soft. ABSENT: distended, guarding, mass, organolmegaly, rebound, tenderness Rectal exam: PRESENT: deferred Neurological exam: PRESENT: other - Intubated, sedated Results Laboratory Results: 11/04/18 08:39 11/04/18 08:39 11/03/18 11/03/18 11/04/18 15:20 15:20 08:39 WBC 9.7 8.2 RBC 4.56 4.28 L Hgb 13.7 12.7 L Hct 41.2 38.6 MCV 90 90 MCH 30.1 29.8 MCHC 33.3 33.0 RDW 14.1 H 14.2 H Plt Count 242 224 Seg Neutrophils % 87.5 H 71.6 Lymphocytes % 5.9 L 20.8 Monocytes % 6.4 6.8 Eosinophils % 0.0 0.1 Basophils % 0.2 0.7 Absolute Neutrophils 8.5 H 5.9 Absolute Lymphocytes 0.6 1.7 Absolute Monocytes 0.6 0.6 Absolute Eosinophils 0.0 0.0 Absolute Basophils 0.0 0.1 Sodium 144.7 Potassium 4.4 Chloride 112 H Carbon Dioxide 26 Anion Gap 7 BUN 20 Creatinine 1.36 H Est GFR ( Amer) > 60 Est GFR (Non-Af Amer) 57 L Glucose 119 H Calcium 8.8 Magnesium 11/04/18 08:39 WBC RBC Hgb Hct MCV MCH MCHC RDW Plt Count Seg Neutrophils % Lymphocytes % Monocytes % Eosinophils % Basophils % Absolute Neutrophils Absolute Lymphocytes Absolute Monocytes Absolute Eosinophils Absolute Basophils Sodium 145.9 H Potassium 4.0 Chloride 114 H Carbon Dioxide 29 Anion Gap 3 L BUN 20 Creatinine 1.35 H Est GFR ( Amer) > 60 Est GFR (Non-Af Amer) 58 L Glucose 78 Calcium 8.7 Magnesium 2.6 H 11/02/18 11:15 Creatine Kinase 169 Impressions: Cervical Spine CT 11/02/18 11:06 IMPRESSION: NO ACUTE OR SIGNIFICANT FINDINGS IN THE CERVICAL SPINE. Head CT 11/02/18 11:06 IMPRESSION: NORMAL BRAIN CT WITHOUT CONTRAST. EVIDENCE OF ACUTE STROKE: NO. Guidance Fluoroscopy 11/02/18 12:34 IMPRESSION: Lumbar puncture under fluoroscopy. No immediate complication. Lumbar Puncture 11/02/18 13:00 IMPRESSION: Lumbar puncture under fluoroscopy. No immediate complication. Chest X-Ray 11/04/18 00:00 IMPRESSION: No infiltrate or pneumothorax. Assessment and Plan - Diagnosis (1) Acute respiratory failure with hypoxia Is this a current diagnosis for this admission?: Yes Plan: 11/02: Secondary to status epilepticus. Currently intubated. Decrease FiO2 from 100% to 60%. Repeat ABG. 11/03: Currently saturating well on 30% FiO2. 11/04: Remains sedated and intubated. Saturating well on minimal vent settings. Will attempt again to wean off sedation today and proceed with weaning trials today. (2) Methamphetamine use Is this a current diagnosis for this admission?: Yes Plan: UDS positive for methamphetamine as mentioned. (3) Status epilepticus Is this a current diagnosis for this admission?: Yes Plan: 11/02: Patient reportedly had 8-9 episodes of chronic tonic seizures en route. He is presenting with fever mild leukocytosis. There is no nuchal rigidity. Will empirically start patient on antibiotics for questionable meningitis. He is scheduled for a lumbar puncture soon. 11/03: CSF analysis was unremarkable. Discontinue vancomycin and dexamethasone. Possibly related to methamphetamine use. (4) Lactic acidosis Is this a current diagnosis for this admission?: Yes Plan: Promptly resolved with IV fluids. (5) Acute kidney injury Is this a current diagnosis for this admission?: Yes Plan: IV fluids as mentioned. Repeat BMP. 11/04: Creatinine at 1.3. Increase IV fluids to 150 cc/hr. Repeat BMP tomorrow. - Time Time Spent with patient: 25-34 minutes
[2018-11-05] MEDS: PROPOFOL 1,000 MG/100 ML INFUS..BTL IV PRN ×5 (01:19→23:12)
[2018-11-05] MEDS: NORMAL SALINE 1000 ML 1,000 ML IV PRN ×3 (01:20→23:13)
[2018-11-05] MEDS: MIDAZOLAM HCL 50 MG/100 ML RTUINJ IV PRN ×5 (04:00→21:04)
[2018-11-05 04:24] LABS: ABSOLUTE LYMPHOCYTES (AUTO) 1.2 10^3/uL (0.5-4.7); ABSOLUTE MONOCYTES (AUTO) 0.5 10^3/uL (0.1-1.4); ABSOLUTE NEUT (AUTO) 6.3 10^3/uL (1.7-8.2); BASOPHILS % (AUTO) 0.4 % (0-2); EOSINOPHILS % (AUTO) 0.1 % (0-6); HEMATOCRIT 39.3 % (37.9-51.0); HEMOGLOBIN 13.1 g/dL (13.5-17.0); LYMPHOCYTES % (AUTO) 14.7 % (13-45); MEAN CORPUSCULAR HEMOGLOBIN 30.1 pg (27.0-33.4); MEAN CORPUSCULAR HGB CONC 33.2 g/dL (32.0-36.0); MEAN CORPUSCULAR VOLUME 91 fl (80-97); MONOCYTES % (AUTO) 6.5 % (3-13); PLATELET COUNT 213 10^3/uL (150-450); RED BLOOD COUNT 4.34 10^6/uL (4.35-5.55); RED CELL DISTRIBUTION WIDTH 14.2 % (11.5-14.0); SEGMENTED NEUTROPHILS % (AUTO) 78.3 % (42-78); TOTAL CELLS COUNTED % (AUTO) 100 %
[2018-11-05 04:36] LABS: ANION GAP 7 (5-19); BLOOD UREA NITROGEN 15 mg/dL (7-20); CALCIUM 8.7 mg/dL (8.4-10.2); CARBON DIOXIDE 25 mmol/L (22-30); CHLORIDE 114 mmol/L (98-107); GLUCOSE 72 mg/dL (75-110); POTASSIUM 3.8 mmol/L (3.6-5.0); SODIUM 146.1 mmol/L (137-145)
--- NOTE | 2018-11-05 09:02 | RADIOLOGY REPORT (SQ) ---
EXAM DESCRIPTION: CHEST SINGLE VIEW COMPLETED DATE/TIME: 11/05/2018 8:50 am REASON FOR STUDY: ET Tube Placement COMPARISON: 11/04/2018 NUMBER OF VIEWS: One view. TECHNIQUE: Single frontal radiographic image of the chest acquired. LIMITATIONS: None. FINDINGS: LUNGS AND PLEURA: No pneumothorax. No infiltrate. MEDIASTINUM AND HEART: Stable heart size and mediastinal structures. SUPPORT DEVICES: Appropriate location without change. BONY STRUCTURES: No acute findings. HARDWARE: None. OTHER: No other significant finding. IMPRESSION: No infiltrate or pneumothorax. Reading location - IP/workstation name: [email or web address]
[2018-11-05 09:49] LABS: ARTERIAL BLOOD BASE EXCESS 1.2 mmol/L; ARTERIAL BLOOD H2CO3 1.11 mmol/L (1.05-1.35); ARTERIAL BLOOD O2 SATURATION 95.6 % (94-98); ARTERIAL BLOOD PH 7.45 (7.35-7.45); ARTERIAL BLOOD PO2 74.9 mmHg (80-100); ARTERIAL BLOOD TOTAL CO2 26.1 mmol/L (23-27)
[2018-11-05 09:50] LABS: ARTERIAL BLOOD FIO2 30%
--- NOTE | 2018-11-05 10:32 | RADIOLOGY REPORT (SQ) ---
EXAM DESCRIPTION: CHEST SINGLE VIEW COMPLETED DATE/TIME: 11/05/2018 8:51 am REASON FOR STUDY: ett/ngt placement verification/poss asp pna COMPARISON: None. NUMBER OF VIEWS: Earlier the same day. TECHNIQUE: Single frontal radiographic image of the chest acquired. LIMITATIONS: None. FINDINGS: LUNGS AND PLEURA: Stable appearance. MEDIASTINUM AND HEART: Stable heart size and mediastinal structures. SUPPORT DEVICES: Appropriate location without change. BONY STRUCTURES: No acute findings. HARDWARE: None. OTHER: No other significant finding. IMPRESSION: No infiltrate or pneumothorax. Reading location - IP/workstation name: [email or web address]
[2018-11-05] MEDS: CEFTRIAXONE 2 GM/D5W RTU 2 GM/50 ML RTUPB IV SCH (10:51)
[2018-11-05] MEDS: PANTOPRAZOLE SODIUM 40 MG VIAL IV SCH ×2 (10:51→21:16)
[2018-11-05] MEDS: LEVETIRACETAM 500 MG/NACL-ISO 500 MG/100 ML RTUPB IV SCH ×2 (11:00→23:12)
--- NOTE | 2018-11-05 11:07 | PDOC PROGRESS REPORT ---
Subjective Progress Note for:: 11/05/18 Subjective:: This is a 42 year old male who was brought in by EMS. Patient was reportedly found unresponsive on the roadside by civilians. Per EMS report, he had multiple seizures. Upon arrival, patient was obtunded and was subsequently intubated. He was also noted to be febrile. UDS was also positive for amphetamines. 11/03: Patient is currently sedated and intubated and saturating well on 30% FiO2. Sister did come in today does report that patient is having issues with s ubstance abuse. Patient became agitated when attempt to wean off sedation was done. 11/04: Remains sedated and intubated. Saturating well on minimal vent settings. Will attempt again to wean off sedation today and proceed with weaning trials today. 11/05: No acute event overnight. However this morning, during the encounter, ET tube was noted to be out. Patient was reintubated and tube was changed. Noted significant thick, yellowish secretions coming from the trachea during intubation. He did become agitated again when weaning of sedation was attempted. Girlfriend and bedside also says that patient was severely dehydrated prior to admission as they are homeless and was not keeping up with fluid intake. She says that they have been on Suboxone for her and patient's history of opiate and heroin use. Reason For Visit: STATUS EPILEPTICUS,ACUTE RESPIRATORY FAILURE Physical Exam Vital Signs: Temp Pulse Resp BP Pulse Ox 99.1 F 82 16 145/91 H 98 11/05/18 10:00 11/04/18 20:00 11/05/18 10:00 11/05/18 08:28 11/05/18 10:00 Intake & Output 11/04/18 11/05/18 11/06/18 06:59 06:59 06:59 Intake Total 3368 4259 Output Total 2775 3625 400 Balance 593 634 -400 Weight 175 lb 14.862 oz 175 lb 7.807 oz General appearance: PRESENT: other - Intubated, sedated Eye exam: PRESENT: conjunctiva pink, EOMI, PERRLA. ABSENT: scleral icterus Ear exam: PRESENT: normal external ear exam Mouth exam: PRESENT: moist, tongue midline Neck exam: ABSENT: carotid bruit, JVD, lymphadenopathy, thyromegaly Respiratory exam: PRESENT: rhonchi. ABSENT: rales, wheezes Cardiovascular exam: PRESENT: RRR. ABSENT: diastolic murmur, rubs, systolic murmur Pulses: PRESENT: normal dorsalis pedis pul Results Laboratory Results: 11/05/18 03:26 11/05/18 03:26 11/05/18 11/05/18 11/05/18 03:26 03:26 09:30 WBC 8.0 RBC 4.34 L Hgb 13.1 L Hct 39.3 MCV 91 MCH 30.1 MCHC 33.2 RDW 14.2 H Plt Count 213 Seg Neutrophils % 78.3 H Lymphocytes % 14.7 Monocytes % 6.5 Eosinophils % 0.1 Basophils % 0.4 Absolute Neutrophils 6.3 Absolute Lymphocytes 1.2 Absolute Monocytes 0.5 Absolute Eosinophils 0.0 Absolute Basophils 0.0 Carbonic Acid 1.11 HCO3/H2CO3 Ratio 22:1 ABG pH 7.45 ABG pCO2 37.0 ABG pO2 74.9 L ABG HCO3 25.0 H ABG O2 Saturation 95.6 ABG Base Excess 1.2 FiO2 30% Sodium 146.1 H Potassium 3.8 Chloride 114 H Carbon Dioxide 25 Anion Gap 7 BUN 15 Creatinine 0.99 Est GFR ( Amer) > 60 Est GFR (Non-Af Amer) > 60 Glucose 72 L Calcium 8.7 11/02/18 14:21 Cerebral Spinal Fluid - Tube 2 (Csf) Gram Stain - Final 11/02/18 14:21 Cerebral Spinal Fluid - Tube 2 (Csf) CSF Culture - Final NO GROWTH 3 DAYS 11/02/18 19:45 Tracheal Aspirate Gram Stain - Final 11/02/18 11:15 Creatine Kinase 169 Impressions: Cervical Spine CT 11/02/18 11:06 IMPRESSION: NO ACUTE OR SIGNIFICANT FINDINGS IN THE CERVICAL SPINE. Head CT 11/02/18 11:06 IMPRESSION: NORMAL BRAIN CT WITHOUT CONTRAST. EVIDENCE OF ACUTE STROKE: NO. Guidance Fluoroscopy 11/02/18 12:34 IMPRESSION: Lumbar puncture under fluoroscopy. No immediate complication. Lumbar Puncture 11/02/18 13:00 IMPRESSION: Lumbar puncture under fluoroscopy. No immediate complication. Chest X-Ray 11/05/18 08:26 IMPRESSION: No infiltrate or pneumothorax. Assessment and Plan - Diagnosis (1) Acute respiratory failure with hypoxia Is this a current diagnosis for this admission?: Yes Plan: 11/02: Secondary to status epilepticus. Currently intubated. Decrease FiO2 from 100% to 60%. Repeat ABG. 11/03: Currently saturating well on 30% FiO2. 11/04: Remains sedated and intubated. Saturating well on minimal vent settings. Will attempt again to wean off sedation today and proceed with weaning trials today. 11/05: This morning, during the encounter, ET tube was noted to be out. Patient was reintubated and tube was changed. Noted significant thick, yellowish secr etions coming from the trachea during intubation. He did become agitated again when weaning of sedation was attempted. (2) Methamphetamine use Is this a current diagnosis for this admission?: Yes Plan: UDS positive for methamphetamine as mentioned. (3) Status epilepticus Is this a current diagnosis for this admission?: Yes Plan: 11/02: Patient reportedly had 8-9 episodes of chronic tonic seizures en route. He is presenting with fever mild leukocytosis. There is no nuchal rigidity. Will empirically start patient on antibiotics for questionable meningitis. He is scheduled for a lumbar puncture soon. 11/03: CSF analysis was unremarkable. Discontinue vancomycin and dexamethasone. Possibly related to methamphetamine use. (4) Lactic acidosis Is this a current diagnosis for this admission?: Yes Plan: Promptly resolved with IV fluids. (5) Acute kidney injury Is this a current diagnosis for this admission?: Yes Plan: IV fluids as mentioned. Repeat BMP. 11/04: Creatinine at 1.3. Increase IV fluids to 150 cc/hr. Repeat BMP tomorrow. 11/05: Resolved. Creatinine is not 0.9. Reduce IV fluids to 75 cc/h as patient will also be started on tube feedings. - Time Time Spent with patient: 25-34 minutes
[2018-11-05] MEDS ORDERED: MORPHINE SULFATE 10 MG/ML INJ IV ONE (13:00)
[2018-11-05] MEDS ORDERED: HALOPERIDOL LACTATE INJ 5 MG/1 ML VIAL IV ONE (13:00)
[2018-11-06] MEDS: MIDAZOLAM HCL 50 MG/100 ML RTUINJ IV PRN ×2 (03:15→09:16)
[2018-11-06] MEDS: PROPOFOL 1,000 MG/100 ML INFUS..BTL IV PRN ×3 (03:16→12:03)
[2018-11-06 05:43] LABS: ARTERIAL BLOOD BASE EXCESS 2.7 mmol/L; ARTERIAL BLOOD FIO2 30%; ARTERIAL BLOOD H2CO3 1.18 mmol/L (1.05-1.35); ARTERIAL BLOOD HCO3 26.7 mmol/L (20-24); ARTERIAL BLOOD O2 SATURATION 96.3 % (94-98); ARTERIAL BLOOD PCO2 39.1 mmHg (35-45); ARTERIAL BLOOD PH 7.45 (7.35-7.45); ARTERIAL BLOOD PO2 79.6 mmHg (80-100); ARTERIAL BLOOD TOTAL CO2 27.9 mmol/L (23-27)
--- NOTE | 2018-11-06 09:08 | RADIOLOGY REPORT (SQ) ---
EXAM DESCRIPTION: CHEST SINGLE VIEW COMPLETED DATE/TIME: 11/06/2018 8:38 am REASON FOR STUDY: reassess infiltrates COMPARISON: 11/05/2018 EXAM PARAMETERS: NUMBER OF VIEWS: One view. TECHNIQUE: Single frontal radiographic view of the chest acquired. RADIATION DOSE: NA LIMITATIONS: None. FINDINGS: LUNGS AND PLEURA: No opacities, masses or pneumothorax. No pleural effusion. MEDIASTINUM AND HILAR STRUCTURES: No masses. Contour normal. HEART AND VASCULAR STRUCTURES: Heart normal in size. Normal vasculature. BONES: No acute findings. HARDWARE: None in the chest. OTHER: Support devices in appropriate location without change. IMPRESSION: 1. Stable examinations since the prior study dated 11/05/2018. No acute pulmonary findin gs. TECHNICAL DOCUMENTATION: JOB ID: [id number] [employer]- All Rights Reserved Reading location - IP/workstation name: [email or web address]
[2018-11-06] MEDS: CEFTRIAXONE 2 GM/D5W RTU 2 GM/50 ML RTUPB IV SCH (09:16)
[2018-11-06] MEDS: PANTOPRAZOLE SODIUM 40 MG VIAL IV SCH (09:16)
[2018-11-06] MEDS ORDERED: HALOPERIDOL LACTATE INJ 5 MG/1 ML VIAL IV ONE (09:24)
[2018-11-06 09:45] LABS: ABSOLUTE EOSINOPHILS # (AUTO) 0.1 10^3/uL (0.0-0.6); ABSOLUTE LYMPHOCYTES (AUTO) 1.3 10^3/uL (0.5-4.7); ABSOLUTE MONOCYTES (AUTO) 0.4 10^3/uL (0.1-1.4); ABSOLUTE NEUT (AUTO) 4.1 10^3/uL (1.7-8.2); BASOPHILS % (AUTO) 0.1 % (0-2); HEMATOCRIT 37.1 % (37.9-51.0); HEMOGLOBIN 12.5 g/dL (13.5-17.0); MEAN CORPUSCULAR HEMOGLOBIN 30.1 pg (27.0-33.4); MEAN CORPUSCULAR HGB CONC 33.7 g/dL (32.0-36.0); MEAN CORPUSCULAR VOLUME 89 fl (80-97); MONOCYTES % (AUTO) 6.1 % (3-13); PLATELET COUNT 192 10^3/uL (150-450); RED BLOOD COUNT 4.15 10^6/uL (4.35-5.55); RED CELL DISTRIBUTION WIDTH 13.9 % (11.5-14.0); SEGMENTED NEUTROPHILS % (AUTO) 69.8 % (42-78); TOTAL CELLS COUNTED % (AUTO) 100 %; WHITE BLOOD COUNT 5.9 10^3/uL (4.0-10.5)
[2018-11-06 10:02] LABS: ANION GAP 6 (5-19); BLOOD UREA NITROGEN 10 mg/dL (7-20); CALCIUM 8.8 mg/dL (8.4-10.2); CARBON DIOXIDE 27 mmol/L (22-30); CHLORIDE 111 mmol/L (98-107); GLUCOSE 98 mg/dL (75-110); POTASSIUM 3.7 mmol/L (3.6-5.0); SODIUM 143.9 mmol/L (137-145)
[2018-11-06] MEDS: NORMAL SALINE 1000 ML 1,000 ML IV PRN (10:59)
[2018-11-06] MEDS: LEVETIRACETAM 500 MG/NACL-ISO 500 MG/100 ML RTUPB IV SCH (11:21)
--- NOTE | 2018-11-06 11:34 | PDOC PROGRESS REPORT ---
Subjective Progress Note for:: 11/06/18 Subjective:: This is a 42 year old male who was brought in by EMS. Patient was reportedly found unresponsive on the roadside by civilians. Per EMS report, he had multiple seizures. Upon arrival, patient was obtunded and was subsequently intubated. He was also noted to be febrile. UDS was also positive for amphetamines. 11/03: Patient is currently sedated and intubated and saturating well on 30% FiO2. Sister did come in today does report that patient is having issues with s ubstance abuse. Patient became agitated when attempt to wean off sedation was done. 11/04: Remains sedated and intubated. Saturating well on minimal vent settings. Will attempt again to wean off sedation today and proceed with weaning trials today. 11/05: However this morning, during the encounter, ET tube was noted to be out. Patient was reintubated and tube was changed. Noted significant thick, yellowish secretions coming from the trachea during intubation. He did become agitated again when weaning of sedation was attempted. Girlfriend and bedside also says that patient was severely dehydrated prior to admission as they are homeless and was not keeping up with fluid intake. She says that they have been on Suboxone for her and patient's history of opiate and heroin use. 11/06: No acute event overnight. He remains sedated and intubated but currently saturating well on minimal vent settings. He has minimal, thin secretions on the ET today. Will attempt weaning today and consider possible extubation later today. Reason For Visit: STATUS EPILEPTICUS,ACUTE RESPIRATORY FAILURE Physical Exam Vital Signs: Temp Pulse Resp BP Pulse Ox 99.7 F 71 14 139/85 H 99 11/06/18 10:00 11/06/18 10:00 11/06/18 10:00 11/06/18 10:00 11/06/18 10:00 Intake & Output 11/05/18 11/06/18 11/07/18 06:59 06:59 06:59 Intake Total 4259 3132 1200 Output Total 3625 3400 1200 Balance 634 -268 0 Weight 175 lb 7.807 oz 173 lb 1.006 oz General appearance: PRESENT: other - Intubated, sedated Head exam: PRESENT: atraumatic, normocephalic Eye exam: PRESENT: conjunctiva pink, EOMI, PERRLA. ABSENT: scleral icterus Ear exam: PRESENT: normal external ear exam Mouth exam: PRESENT: moist, tongue midline Neck exam: ABSENT: carotid bruit, JVD, lymphadenopathy, thyromegaly Respiratory exam: PRESENT: clear to auscultation aime. ABSENT: rales, rhonchi, wheezes Cardiovascular exam: PRESENT: RRR. ABSENT: diastolic murmur, rubs, systolic murmur Pulses: PRESENT: normal dorsalis pedis pul GI/Abdominal exam: PRESENT: normal bowel sounds, soft. ABSENT: distended, guarding, mass, organolmegaly, rebound, tenderness Rectal exam: PRESENT: deferred Neurological exam: PRESENT: other - Intubated, sedated Results Laboratory Results: 11/06/18 09:38 11/06/18 09:38 11/06/18 11/06/18 11/06/18 05:35 08:30 09:38 WBC Cancelled RBC Cancelled Hgb Cancelled Hct Cancelled MCV Cancelled MCH Cancelled MCHC Cancelled RDW Cancelled Plt Count Cancelled Seg Neutrophils % Cancelled Lymphocytes % Cancelled Monocytes % Cancelled Eosinophils % Cancelled Basophils % Cancelled Absolute Neutrophils Cancelled Absolute Lymphocytes Cancelled Absolute Monocytes Cancelled Absolute Eosinophils Cancelled Absolute Basophils Cancelled Carbonic Acid 1.18 HCO3/H2CO3 Ratio 22:1 ABG pH 7.45 ABG pCO2 39.1 ABG pO2 79.6 L ABG HCO3 26.7 H ABG O2 Saturation 96.3 ABG Base Excess 2.7 FiO2 30% Sodium 143.9 Potassium 3.7 Chloride 111 H Carbon Dioxide 27 Anion Gap 6 BUN 10 Creatinine 0.71 Est GFR ( Amer) > 60 Est GFR (Non-Af Amer) > 60 Glucose 98 Calcium 8.8 11/06/18 09:38 WBC 5.9 RBC 4.15 L Hgb 12.5 L Hct 37.1 L MCV 89 MCH 30.1 MCHC 33.7 RDW 13.9 Plt Count 192 Seg Neutrophils % 69.8 Lymphocytes % 22.0 Monocytes % 6.1 Eosinophils % 2.0 Basophils % 0.1 Absolute Neutrophils 4.1 Absolute Lymphocytes 1.3 Absolute Monocytes 0.4 Absolute Eosinophils 0.1 Absolute Basophils 0.0 Carbonic Acid HCO3/H2CO3 Ratio ABG pH ABG pCO2 ABG pO2 ABG HCO3 ABG O2 Saturation ABG Base Excess FiO2 Sodium Potassium Chloride Carbon Dioxide Anion Gap BUN Creatinine Est GFR ( Amer) Est GFR (Non-Af Amer) Glucose Calcium 11/02/18 19:45 Tracheal Aspirate Gram Stain - Final 11/02/18 19:45 Tracheal Aspirate Sputum Culture - Final Klebsiella Pneumoniae Staphylococcus Aureus Normal Gillian 11/02/18 14:21 Cerebral Spinal Fluid - Tube 2 (Csf) Gram Stain - Final 11/02/18 14:21 Cerebral Spinal Fluid - Tube 2 (Csf) CSF Culture - Final NO GROWTH 3 DAYS 11/02/18 11:15 Creatine Kinase 169 Impressions: Cervical Spine CT 11/02/18 11:06 IMPRESSION: NO ACUTE OR SIGNIFICANT FINDINGS IN THE CERVICAL SPINE. Head CT 11/02/18 11:06 IMPRESSION: NORMAL BRAIN CT WITHOUT CONTRAST. EVIDENCE OF ACUTE STROKE: NO. Guidance Fluoroscopy 11/02/18 12:34 IMPRESSION: Lumbar puncture under fluoroscopy. No immediate complication. Lumbar Puncture 11/02/18 13:00 IMPRESSION: Lumbar puncture under fluoroscopy. No immediate complication. Chest X-Ray 11/06/18 08:05 IMPRESSION: 1. Stable examinations since the prior study dated 11/05/2018. No acute pulmonary findings. Assessment and Plan - Diagnosis (1) Acute respiratory failure with hypoxia Is this a current diagnosis for this admission?: Yes Plan: 11/02: Secondary to status epilepticus. Currently intubated. Decrease FiO2 from 100% to 60%. Repeat ABG. 11/03: Currently saturating well on 30% FiO2. 11/04: Remains sedated and intubated. Saturating well on minimal vent settings. Will attempt again to wean off sedation today and proceed with weaning trials today. 11/05: This morning, during the encounter, ET tube was noted to be out. Patient was reintubated and tube was changed. Noted significant thick, yellowish secretions coming from the trachea during intubation. He did become agitated again when weaning of sedation was attempted. 11/06: He remains sedated and intubated but currently saturating well on minimal vent settings. He has minimal, thin secretions on the ET today. Will attempt weaning today and consider possible extubation later today. (2) Methamphetamine use Is this a current diagnosis for this admission?: Yes Plan: UDS positive for methamphetamine as mentioned. (3) Status epilepticus Is this a current diagnosis for this admission?: Yes Plan: 11/02: Patient reportedly had 8-9 episodes of chronic tonic seizures en route. He is presenting with fever mild leukocytosis. There is no nuchal rigidity. Will empirically start patient on antibiotics for questionable meningitis. He is scheduled for a lumbar puncture soon. 11/03: CSF analysis was unremarkable. Discontinue vancomycin and dexamethasone. Possibly related to methamphetamine use. Severe heat exhaustion possibly contributory as patient did have severe dehydration and was reportedly not keeping up with oral fluid intake under extremely hot weather. (4) Lactic acidosis Is this a current diagnosis for this admission?: Yes Plan: Promptly resolved with IV fluids. (5) Acute kidney injury Is this a current diagnosis for this admission?: Yes Plan: Likely prerenal from severe dehydration. IV fluids as mentioned. 11/04: Creatinine at 1.3. Increase IV fluids to 150 cc/hr. Repeat BMP tomorrow. 11/05: Resolved. Creatinine is not 0.9. Reduce IV fluids to 75 cc/h as patient will also be started on tube feedings. (6) Dehydration Is this a current diagnosis for this admission?: Yes Plan: Resolved. - Time Time Spent with patient: 25-34 minutes
[2018-11-06] MEDS ORDERED: SCOPOLAMINE HYDROBROMIDE 1.5 MG PATCH.TD72 TD ONE (12:53)
[2018-11-06] MEDS ORDERED: HALOPERIDOL LACTATE INJ 5 MG/1 ML VIAL ONE (13:01)
[2018-11-06] MEDS ORDERED: LORAZEPAM INJ 2 MG/1 ML VIAL ONE ×2 (13:21→16:25)
[2018-11-06] MEDS: HALOPERIDOL LACTATE INJ 5 MG/1 ML VIAL IV PRN (14:30)
[2018-11-06] MEDS ORDERED: LORAZEPAM INJ 2 MG/1 ML VIAL IV ONE (16:24)
[2018-11-06] MEDS ORDERED: OLANZAPINE INJ/PF 10 MG SDV IM ONE (17:20)
[2018-11-06] MEDS ORDERED: ACETAMINOPHEN 325 MG TABLET PO PRN (21:56)
[2018-11-06] MEDS ORDERED: DIPHENHYDRAMINE HCL 50 MG/ML VIAL IV ONE (23:46)
[2018-11-07] MEDS: HALOPERIDOL LACTATE INJ 5 MG/1 ML VIAL IV PRN ×4 (00:12→15:23)
[2018-11-07] MEDS: NORMAL SALINE 1000 ML 1,000 ML IV PRN (00:12)
[2018-11-07] MEDS: LEVETIRACETAM 500 MG/NACL-ISO 500 MG/100 ML RTUPB IV SCH ×3 (00:12→23:29)
[2018-11-07 09:55] LABS: ABSOLUTE EOSINOPHILS # (AUTO) 0.1 10^3/uL (0.0-0.6); ABSOLUTE LYMPHOCYTES (AUTO) 1.1 10^3/uL (0.5-4.7); ABSOLUTE MONOCYTES (AUTO) 0.4 10^3/uL (0.1-1.4); ABSOLUTE NEUT (AUTO) 6.1 10^3/uL (1.7-8.2); BASOPHILS % (AUTO) 0.3 % (0-2); EOSINOPHILS % (AUTO) 1.2 % (0-6); HEMATOCRIT 36.2 % (37.9-51.0); HEMOGLOBIN 12.4 g/dL (13.5-17.0); LYMPHOCYTES % (AUTO) 14.8 % (13-45); MEAN CORPUSCULAR HEMOGLOBIN 30.3 pg (27.0-33.4); MEAN CORPUSCULAR HGB CONC 34.3 g/dL (32.0-36.0); MEAN CORPUSCULAR VOLUME 88 fl (80-97); MONOCYTES % (AUTO) 5.2 % (3-13); PLATELET COUNT 203 10^3/uL (150-450); RED BLOOD COUNT 4.09 10^6/uL (4.35-5.55); RED CELL DISTRIBUTION WIDTH 13.5 % (11.5-14.0); SEGMENTED NEUTROPHILS % (AUTO) 78.5 % (42-78); TOTAL CELLS COUNTED % (AUTO) 100 %; WHITE BLOOD COUNT 7.7 10^3/uL (4.0-10.5)
[2018-11-07 10:26] LABS: ALANINE AMINOTRANSFERASE 32 U/L (21-72); ALBUMIN 3.4 g/dL (3.5-5.0); ALKALINE PHOSPHATASE 57 U/L (38-126); ANION GAP 11 (5-19); ASPARTATE AMINO TRANSFERASE 53 U/L (17-59); BILIRUBIN,DIRECT 0.4 mg/dL (0.0-0.4); BILIRUBIN,TOTAL 1.1 mg/dL (0.2-1.3); BLOOD UREA NITROGEN 6 mg/dL (7-20); CARBON DIOXIDE 26 mmol/L (22-30); CHLORIDE 106 mmol/L (98-107); GLUCOSE 93 mg/dL (75-110); POTASSIUM 3.3 mmol/L (3.6-5.0); SODIUM 142.9 mmol/L (137-145); TOTAL PROTEIN 5.7 g/dL (6.3-8.2)
[2018-11-07] MEDS ORDERED: LORAZEPAM INJ 2 MG/1 ML VIAL IV PRN (10:47)
[2018-11-07] MEDS ORDERED: POTASSIUM CHLORIDE 10 MEQ CAPSULE.ER PO ONE (11:31)
--- NOTE | 2018-11-07 11:31 | PDOC PROGRESS REPORT ---
Subjective Progress Note for:: 11/07/18 Subjective:: 42 year old male who was brought in by EMS. Patient was reportedly found unresponsive on the roadside by civilians. Per EMS report, he had multiple seizures. Upon arrival, patient was obtunded and was subsequently intubated. He was also noted to be febrile. UDS was also positive for amphetamines. 11/03: Patient is currently sedated and intubated and saturating well on 30% FiO2. Sister did come in today does report that patient is having issues with substance abuse. Patient became agitated when attempt to wean off sedation was done. 11/04: Remains sedated and intubated. Saturating well on minimal vent settings. Will attempt again to wean off sedation today and proceed with weaning trials today. 11/05: However this morning, during the encounter, ET tube was noted to be out. Patient was reintubated and tube was changed. Noted significant thick, yell owish secretions coming from the trachea during intubation. He did become agitated again when weaning of sedation was attempted. Girlfriend and bedside also says that patient was severely dehydrated prior to admission as they are homeless and was not keeping up with fluid intake. She says that they have been on Suboxone for her and patient's history of opiate and heroin use. 11/06: No acute event overnight. He remains sedated and intubated but currently saturating well on minimal vent settings. He has minimal, thin secretions on the ET today. Will attempt weaning today and consider possible extubation later today. 11/07/2018-no acute events overnight. Patient was successfully extubated yesterday. Alert and awake communicating okay. T-max is 99.3 and blood pressure is 141/87. To start him on cardiac diet and to discontinue IV fluids. Psych team called me to give the recommendations to start on BuSpar 5 mg p.o. twice daily and Effexor 37.5 mg daily. Patient is presently on Haldol as needed is not holding him down we added Ativan 1 mg IV every 6 as needed for agitation. Patient needs to be here in ICU probably until tomorrow. Reason For Visit: STATUS EPILEPTICUS,ACUTE RESPIRATORY FAILURE Physical Exam Vital Signs: Temp Pulse Resp BP Pulse Ox 99.3 F 67 22 H 147/95 H 99 11/07/18 09:15 11/07/18 10:00 11/07/18 10:00 11/07/18 10:00 11/07/18 10:00 Intake & Output 11/06/18 11/07/18 11/08/18 06:59 06:59 06:59 Intake Total 3137 243 Output Total 3408 4575 800 Balance -268 -2138 -800 Weight 78.5 kg 78.5 kg General appearance: PRESENT: no acute distress, thin Head exam: PRESENT: atraumatic Eye exam: PRESENT: PERRLA Mouth exam: PRESENT: moist, tongue midline Neck exam: ABSENT: carotid bruit, JVD, lymphadenopathy, thyromegaly Respiratory exam: PRESENT: decreased breath sounds Cardiovascular exam: PRESENT: RRR. ABSENT: diastolic murmur, rubs, systolic murmur GI/Abdominal exam: PRESENT: normal bowel sounds, soft. ABSENT: distended, guarding, mass, organolmegaly, rebound, tenderness Extremities exam: PRESENT: full ROM. ABSENT: calf tenderness, clubbing, pedal edema Neurological exam: PRESENT: alert, awake, oriented to person, oriented to place, oriented to time, oriented to situation, CN II-XII grossly intact. ABSENT: motor sensory deficit Skin exam: PRESENT: dry, intact, warm. ABSENT: cyanosis, rash Results Laboratory Results: 11/07/18 09:45 11/07/18 09:45 11/07/18 11/07/18 09:45 09:45 WBC 7.7 RBC 4.09 L Hgb 12.4 L Hct 36.2 L MCV 88 MCH 30.3 MCHC 34.3 RDW 13.5 Plt Count 203 Seg Neutrophils % 78.5 H Lymphocytes % 14.8 Monocytes % 5.2 Eosinophils % 1.2 Basophils % 0.3 Absolute Neutrophils 6.1 Absolute Lymphocytes 1.1 Absolute Monocytes 0.4 Absolute Eosinophils 0.1 Absolute Basophils 0.0 Sodium 142.9 Potassium 3.3 L Chloride 106 Carbon Dioxide 26 Anion Gap 11 BUN 6 L Creatinine 0.54 Est GFR ( Amer) > 60 Est GFR (Non-Af Amer) > 60 Glucose 93 Calcium 9.0 Magnesium 1.6 Total Bilirubin 1.1 AST 53 ALT 32 Alkaline Phosphatase 57 Total Protein 5.7 L Albumin 3.4 L 11/02/18 11:15 Creatine Kinase 169 Impressions: Cervical Spine CT 11/02/18 11:06 IMPRESSION: NO ACUTE OR SIGNIFICANT FINDINGS IN THE CERVICAL SPINE. Head CT 11/02/18 11:06 IMPRESSION: NORMAL BRAIN CT WITHOUT CONTRAST. EVIDENCE OF ACUTE STROKE: NO. Guidance Fluoroscopy 11/02/18 12:34 IMPRESSION: Lumbar puncture under fluoroscopy. No immediate complication. Lumbar Puncture 11/02/18 13:00 IMPRESSION: Lumbar puncture under fluoroscopy. No immediate complication. Chest X-Ray 11/06/18 08:05 IMPRESSION: 1. Stable examinations since the prior study dated 11/05/2018. No acute pulmonary findings. Assessment and Plan - Diagnosis (1) Acute respiratory failure with hypoxia Is this a current diagnosis for this admission?: Yes Plan: 11/02: Secondary to status epilepticus. Currently intubated. Decrease FiO2 from 100% to 60%. Repeat ABG. 11/03: Currently saturating well on 30% FiO2. 11/04: Remains sedated and intubated. Saturating well on minimal vent settings. Will attempt again to wean off sedation today and proceed with weaning trials today. 11/05: This morning, during the encounter, ET tube was noted to be out. Patient was reintubated and tube was changed. Noted significant thick, yellowish secretions coming from the trachea during intubation. He did become agitated again when weaning of sedation was attempted. 11/06: He remains sedated and intubated but currently saturating well on minimal vent settings. He has minimal, thin secretions on the ET today. Will attempt weaning today and consider possible extubation later today. 11/07/2018-patient was successfully extubated yesterday. Pulse ox 99% on room air. Not in distress. Communicating well. Chest bilateral entry was decreased no wheezing no crepitations. Plan is to continue the nebulizer treatments. (2) Methamphetamine use Is this a current diagnosis for this admission?: Yes Plan: UDS positive for methamphetamine as mentioned. 11/07/2018-urine drug screen is positive for methamphetamine. Psych recommended that he does not need IVC anymore and recommended to start on Effexor 37.5 mg daily and BuSpar 5 mg p.o. twice daily. (3) Status epilepticus Is this a current diagnosis for this admission?: Yes Plan: 11/02: Patient reportedly had 8-9 episodes of chronic tonic seizures en route. He is presenting with fever mild leukocytosis. There is no nuchal rigidity. Will empirically start patient on antibiotics for questionable meningitis. He is scheduled for a lumbar puncture soon. 11/03: CSF analysis was unremarkable. Discontinue vancomycin and dexamethasone. Possibly related to methamphetamine use. Severe heat exhaustion possibly contributory as patient did have severe dehydration and was reportedly not keeping up with oral fluid intake under extremely hot weather. 11/07/2018-patient admitted with status epilepticus CSF fluid is negative and antibiotics and dexamethasone are discontinued. Patient alert and awake communicating okay this morning. (4) Lactic acidosis Is this a current diagnosis for this admission?: Yes Plan: Promptly resolved with IV fluids. 11/07/2018-acidosis is resolved. (5) Acute kidney injury Is this a current diagnosis for this admission?: Yes Plan: Likely prerenal from severe dehydration. IV fluids as mentioned. 11/04: Creatinine at 1.3. Increase IV fluids to 150 cc/hr. Repeat BMP tomorrow. 11/05: Resolved. Creatinine is not 0.9. Reduce IV fluids to 75 cc/h as patient will also be started on tube feedings. 11/07/2018-patient admitted with acute kidney injury. Patient creatinine is 1.36 and latest creatinine 0.54. Acute kidney injury most likely prerenal causes r esolved. Plan creatinine is around 0.6. - Time Time Spent with patient: 25-34 minutes Smoking Cessation Education: over 10 minutes Medications reviewed and adjusted accordingly: Yes Anticipated discharge: Home
[2018-11-07] MEDS: VENLAFAXINE HCL 37.5 MG CAP.SR.24H PO SCH (13:22)
--- NOTE | 2018-11-07 14:59 | PSYCHOLOGICAL NOTE ---
Psych Note - Psych Note Date seen by psych provider: 11/07/18 Time seen by psych provider: 08:05 - Chart review at 0805. GF collateral from [id number]. Interaction with patient at 0930. 1:1 Nurse collateral from [id number]. Psych Note: Presenting Problem: In ICU for OD (UDS positive for meth and cannabis) after being found on the side of the road unresponsive then having seizure. He was extubated yesterday (11/06/18) at 1325 became agitated/restless/combative/uncooperative so required soft restraints and medication sedation/stabilization. Obtained collateral from GF, Magi, separate from patient. She admitted Hx of heroin addiction, the past 3-4 years had been self medicating, now use is recreational and he smoked meth (6-7 hits) 17 days ago. Diagnosis: Polysusbtance Use Meth Cannabis 296.80 (F31.9) Unspecified Bipolar and Related Disorder by history per patient and gf Medication recommendations made by the psychiatric medical provider. Dr. Pedro MD., includes: Continue Haldol and Ativan as PRNs Continue Keppra 500MG twice a day for seizure/mood stabilization Add Effexor 37.5MG daily for depression/focus/energy/to curb cravings Add Buspar 5MG twice a day for anxiety/calming effect/depression/sleep Impression/Plan: Patient is cleared from acute psychiatric services. He and GF admitted to history of drug abuse. GF noted the past 3-4 years patient has been self medicating, was diagnosed Bipolar in 2016 by [facility] and has not been medicated. Provided GF and also put on physical chart outpatient MH resource sheet which highlighted [facility] and [facility] (documented can walk in M-F [id number]). Listed on the copy for GF medications, dosages, frequency and what meant to treat. Inquired to GF about local homeless fpc which she said they have tried to get into but full. Consulted with Dr. Carlos regarding the management and care of patient. Attending Hospitalist made aware of recommendations.
[2018-11-07] MEDS: BUSPIRONE HCL 10 MG TABLET PO SCH (21:47)
[2018-11-07] MEDS: HEPARIN SOD (PORCINE) 5,000 UNIT/ML 1 ML SYRINGE SUBCUT SCH (21:47)
[2018-11-08 09:02] LABS: ABSOLUTE EOSINOPHILS # (AUTO) 0.2 10^3/uL (0.0-0.6); ABSOLUTE LYMPHOCYTES (AUTO) 1.1 10^3/uL (0.5-4.7); ABSOLUTE MONOCYTES (AUTO) 0.3 10^3/uL (0.1-1.4); BASOPHILS % (AUTO) 0.7 % (0-2); EOSINOPHILS % (AUTO) 3.9 % (0-6); HEMATOCRIT 39.2 % (37.9-51.0); HEMOGLOBIN 13.4 g/dL (13.5-17.0); LYMPHOCYTES % (AUTO) 19.4 % (13-45); MEAN CORPUSCULAR HEMOGLOBIN 30.4 pg (27.0-33.4); MEAN CORPUSCULAR HGB CONC 34.2 g/dL (32.0-36.0); MEAN CORPUSCULAR VOLUME 89 fl (80-97); MONOCYTES % (AUTO) 5.8 % (3-13); PLATELET COUNT 229 10^3/uL (150-450); RED BLOOD COUNT 4.42 10^6/uL (4.35-5.55); RED CELL DISTRIBUTION WIDTH 13.6 % (11.5-14.0); SEGMENTED NEUTROPHILS % (AUTO) 70.2 % (42-78); TOTAL CELLS COUNTED % (AUTO) 100 %; WHITE BLOOD COUNT 5.7 10^3/uL (4.0-10.5)
--- NOTE | 2018-11-08 09:13 | PDOC PROGRESS REPORT ---
Subjective Progress Note for:: 11/08/18 Subjective:: 42 year old male who was brought in by EMS. Patient was reportedly found unresponsive on the roadside by civilians. Per EMS report, he had multiple seizures. Upon arrival, patient was obtunded and was subsequently intubated. He was also noted to be febrile. UDS was also positive for amphetamines. 11/03: Patient is currently sedated and intubated and saturating well on 30% FiO2. Sister did come in today does report that patient is having issues with substance abuse. Patient became agitated when attempt to wean off sedation was done. 11/04: Remains sedated and intubated. Saturating well on minimal vent settings. Will attempt again to wean off sedation today and proceed with weaning trials today. 11/05: However this morning, during the encounter, ET tube was noted to be out. Patient was reintubated and tube was changed. Noted significant thick, yell owish secretions coming from the trachea during intubation. He did become agitated again when weaning of sedation was attempted. Girlfriend and bedside also says that patient was severely dehydrated prior to admission as they are homeless and was not keeping up with fluid intake. She says that they have been on Suboxone for her and patient's history of opiate and heroin use. 11/06: No acute event overnight. He remains sedated and intubated but currently saturating well on minimal vent settings. He has minimal, thin secretions on the ET today. Will attempt weaning today and consider possible extubation later today. 11/07/2018-no acute events overnight. Patient was successfully extubated yesterday. Alert and awake communicating okay. T-max is 99.3 and blood pressure is 141/87. To start him on cardiac diet and to discontinue IV fluids. Psych team called me to give the recommendations to start on BuSpar 5 mg p.o. twice daily and Effexor 37.5 mg daily. Patient is presently on Haldol as needed is not holding him down we added Ativan 1 mg IV every 6 as needed for agitation. Patient needs to be here in ICU probably until tomorrow. 11/08/2018-no acute events in the last 24 hours. Patient is afebrile. T-max is 98.2 he is off the restraints. I think is stable enough to go to IMCU today. Psych team is going to be contacted for further recommendations. Reason For Visit: STATUS EPILEPTICUS,ACUTE RESPIRATORY FAILURE Physical Exam Vital Signs: Temp Pulse Resp BP Pulse Ox 98.4 F 74 16 111/77 95 11/08/18 08:00 11/08/18 08:00 11/08/18 08:00 11/08/18 08:00 11/08/18 08:00 Intake & Output 11/07/18 11/08/18 11/09/18 06:59 06:59 06:59 Intake Total 2437 1676 Output Total 4151 2320 50 Balance -2138 -644 -50 Weight 78.5 kg 75.9 kg General appearance: PRESENT: no acute distress Head exam: PRESENT: atraumatic Eye exam: PRESENT: PERRLA Mouth exam: PRESENT: moist, tongue midline Teeth exam: PRESENT: poor dentation Neck exam: ABSENT: carotid bruit, JVD, lymphadenopathy, thyromegaly Respiratory exam: PRESENT: decreased breath sounds Cardiovascular exam: PRESENT: RRR. ABSENT: diastolic murmur, rubs, systolic murmur GI/Abdominal exam: PRESENT: normal bowel sounds, soft. ABSENT: distended, guarding, mass, organolmegaly, rebound, tenderness Rectal exam: PRESENT: deferred Extremities exam: PRESENT: full ROM. ABSENT: calf tenderness, clubbing, pedal edema Neurological exam: PRESENT: alert, awake, oriented to person, oriented to place, oriented to time, oriented to situation, CN II-XII grossly intact. ABSENT: motor sensory deficit Psychiatric exam: PRESENT: appropriate affect, normal mood. ABSENT: homicidal ideation, suicidal ideation Results Laboratory Results: 11/08/18 08:52 11/07/18 11/07/18 11/08/18 09:45 09:45 08:52 WBC 7.7 5.7 RBC 4.09 L 4.42 Hgb 12.4 L 13.4 L Hct 36.2 L 39.2 MCV 88 89 MCH 30.3 30.4 MCHC 34.3 34.2 RDW 13.5 13.6 Plt Count 203 229 Seg Neutrophils % 78.5 H 70.2 Lymphocytes % 14.8 19.4 Monocytes % 5.2 5.8 Eosinophils % 1.2 3.9 Basophils % 0.3 0.7 Absolute Neutrophils 6.1 4.0 Absolute Lymphocytes 1.1 1.1 Absolute Monocytes 0.4 0.3 Absolute Eosinophils 0.1 0.2 Absolute Basophils 0.0 0.0 Sodium 142.9 Potassium 3.3 L Chloride 106 Carbon Dioxide 26 Anion Gap 11 BUN 6 L Creatinine 0.54 Est GFR ( Amer) > 60 Est GFR (Non-Af Amer) > 60 Glucose 93 Calcium 9.0 Magnesium 1.6 Total Bilirubin 1.1 AST 53 ALT 32 Alkaline Phosphatase 57 Total Protein 5.7 L Albumin 3.4 L 11/02/18 13:22 Blood Blood Culture - Final NO GROWTH IN 5 DAYS 11/02/18 11:15 Blood Blood Culture - Final NO GROWTH IN 5 DAYS 11/02/18 11:15 Creatine Kinase 169 Impressions: Cervical Spine CT 11/02/18 11:06 IMPRESSION: NO ACUTE OR SIGNIFICANT FINDINGS IN THE CERVICAL SPINE. Head CT 11/02/18 11:06 IMPRESSION: NORMAL BRAIN CT WITHOUT CONTRAST. EVIDENCE OF ACUTE STROKE: NO. Guidance Fluoroscopy 11/02/18 12:34 IMPRESSION: Lumbar puncture under fluoroscopy. No immediate complication. Lumbar Puncture 11/02/18 13:00 IMPRESSION: Lumbar puncture under fluoroscopy. No immediate complication. Chest X-Ray 11/06/18 08:05 IMPRESSION: 1. Stable examinations since the prior study dated 11/05/2018. No acute pulmonary findings. Assessment and Plan - Diagnosis (1) Acute respiratory failure with hypoxia Is this a current diagnosis for this admission?: Yes Plan: 11/02: Secondary to status epilepticus. Currently intubated. Decrease FiO2 from 100% to 60%. Repeat ABG. 11/03: Currently saturating well on 30% FiO2. 11/04: Remains sedated and intubated. Saturating well on minimal vent settings. Will attempt again to wean off sedation today and proceed with weaning trials today. 11/05: This morning, during the encounter, ET tube was noted to be out. Patient was reintubated and tube was changed. Noted significant thick, yellowish secretions coming from the trachea during intubation. He did become agitated again when weaning of sedation was attempted. 11/06: He remains sedated and intubated but currently saturating well on minimal vent settings. He has minimal, thin secretions on the ET today. Will attempt weaning today and consider possible extubation later today. 11/07/2018-patient was successfully extubated yesterday. Pulse ox 99% on room air. Not in distress. Communicating well. Chest bilateral entry was decreased no wheezing no crepitations. Plan is to continue the nebulizer treatments. 11/[id number]-osfa-old male admitted with acute respiratory failure with hypoxia status post patient and extubation. Extremely well. Pulse ox is 96% on room air. Acute respiratory failure with hypoxia most likely secondary to status epilepticus. (2) Methamphetamine use Is this a current diagnosis for this admission?: Yes Plan: UDS positive for methamphetamine as mentioned. 11/07/2018-urine drug screen is positive for methamphetamine. Psych recommended that he does not need IVC anymore and recommended to start on Effexor 37.5 mg daily and BuSpar 5 mg p.o. twice daily. 11/08/2018-patient admitted with urine drug screens positive for meth amphetamine and patient wants to go to a drug rehab psych consult was also requested. (3) Status epilepticus Is this a current diagnosis for this admission?: Yes Plan: 11/02: Patient reportedly had 8-9 episodes of chronic tonic seizures en route. He is presenting with fever mild leukocytosis. There is no nuchal rigidity. Will empirically start patient on antibiotics for questionable meningitis. He is scheduled for a lumbar puncture soon. 11/03: CSF analysis was unremarkable. Discontinue vancomycin and dexamethasone. Possibly related to methamphetamine use. Severe heat exhaustion possibly contributory as patient did have severe dehydration and was reportedly not keeping up with oral fluid intake under extremely hot weather. 11/07/2018-patient admitted with status epilepticus CSF fluid is negative and antibiotics and dexamethasone are discontinued. Patient alert and awake communicating okay this morning. 11/08/2018-patient was admitted with status epilepticus, LP was done which was negative. Patient is off the antibiotics. Alert and awake communicating well. Presently is on Keppra plan is to continue the medication. (4) Lactic acidosis Is this a current diagnosis for this admission?: Yes Plan: Promptly resolved with IV fluids. 11/07/2018-acidosis is resolved. (5) Acute kidney injury Is this a current diagnosis for this admission?: Yes Plan: Likely prerenal from severe dehydration. IV fluids as mentioned. 11/04: Creatinine at 1.3. Increase IV fluids to 150 cc/hr. Repeat BMP tomorrow. 11/05: Resolved. Creatinine is not 0.9. Reduce IV fluids to 75 cc/h as patient will also be started on tube feedings. 11/07/2018-patient admitted with acute kidney injury. Patient creatinine is 1.36 and latest creatinine 0.54. Acute kidney injury most likely prerenal causes resolved. Plan creatinine is around 0.6. 11/08/2018-patient serum creatinine is 0.54 yesterday acute kidney injury most likely secondary to prerenal causes resolved. - Time Time Spent with patient: 25-34 minutes Smoking Cessation Education: over 10 minutes Medications reviewed and adjusted accordingly: Yes Anticipated discharge: Home
[2018-11-08 09:27] LABS: ALANINE AMINOTRANSFERASE 50 U/L (21-72); ALBUMIN 3.5 g/dL (3.5-5.0); ALKALINE PHOSPHATASE 48 U/L (38-126); ANION GAP 8 (5-19); ASPARTATE AMINO TRANSFERASE 49 U/L (17-59); BILIRUBIN,DIRECT 0.2 mg/dL (0.0-0.4); BILIRUBIN,TOTAL 0.7 mg/dL (0.2-1.3); BLOOD UREA NITROGEN 11 mg/dL (7-20); CALCIUM 9.3 mg/dL (8.4-10.2); CARBON DIOXIDE 28 mmol/L (22-30); CHLORIDE 105 mmol/L (98-107); GLUCOSE 127 mg/dL (75-110); POTASSIUM 4.1 mmol/L (3.6-5.0); SODIUM 140.6 mmol/L (137-145); TOTAL PROTEIN 5.8 g/dL (6.3-8.2)
[2018-11-08] MEDS: VENLAFAXINE HCL 37.5 MG CAP.SR.24H PO SCH (10:02)
[2018-11-08] MEDS: BUSPIRONE HCL 10 MG TABLET PO SCH ×2 (10:02→21:11)
[2018-11-08] MEDS: HEPARIN SOD (PORCINE) 5,000 UNIT/ML 1 ML SYRINGE SUBCUT SCH ×2 (10:04→21:12)
[2018-11-08] MEDS: NICOTINE 14 MG/24 HR PATCH.TD24 TD SCH (11:08)
[2018-11-08] MEDS: LEVETIRACETAM 500 MG/NACL-ISO 500 MG/100 ML RTUPB IV SCH ×2 (11:10→23:22)
[2018-11-09 10:49] VITALS: BP 126/66
[2018-11-09] MEDS: NICOTINE 14 MG/24 HR PATCH.TD24 TD SCH (10:55)
[2018-11-09] MEDS: BUSPIRONE HCL 10 MG TABLET PO SCH (10:55)
[2018-11-09] MEDS: HEPARIN SOD (PORCINE) 5,000 UNIT/ML 1 ML SYRINGE SUBCUT SCH (10:56)
[2018-11-09] MEDS: VENLAFAXINE HCL 37.5 MG CAP.SR.24H PO SCH (11:09)
--- NOTE | 2018-11-09 22:33 | PDOC DISCHARGE SUMMARY ---
General - Admit/Disc Date/PCP Admission Date/Primary Care Provider: 11/02/18 13:14 Discharge Date: 11/09/18 - Discharge Diagnosis (1) Acute respiratory failure with hypoxia Is this a current diagnosis for this admission?: Yes Summary: The patient experienced status epilepticus. He had inability to protect his airway. He was intubated and mechanically ventilated. He was successfully extubated and is back on room air without any respiratory complaints. (2) Status epilepticus Is this a current diagnosis for this admission?: Yes Summary: The patient was found down in the field. During transport to the hospital he experienced 8 or 9 episodes of tonic clonic seizures. He was treated with benzodiazepines. And a lumbar puncture was performed and was negative. His urine screen was positive for methamphetamine and this could certainly be a precipitating factor. The patient did have an abnormal EEG but this was complicated by his medications for sedation while intubated. The patient will be discharged on Keppra 500 mg twice daily. He needs to stay on this medication and follow-up with neurology as an outpatient. He should have an EEG now that he has recovered from the acute episode. If that EEG is still abnormal then his neurologist will prescribe a treatment plan. (3) Methamphetamine use Is this a current diagnosis for this admission?: Yes Summary: The patient has requested interest in detox/rehab programs for drug addiction. The psychiatry team provided information for both the patient and his significant other. He was encouraged to follow-up with his request for treatment. (4) Lactic acidosis Is this a current diagnosis for this admission?: Yes Summary: Secondary to the status epilepticus. He was given aggressive fluid resuscitation and the lactic acidosis resolved. Initial lactic acid was 15.8 but resolve quickly with IV fluids. (5) Acute kidney injury Is this a current diagnosis for this admission?: Yes Summary: Secondary to lactic acidosis with decreased perfusion. The patient responded nicely to the fluid resuscitation. At the time of discharge his renal function is normal. - Additional Information Discharge Diet: As Tolerated, Regular Discharge Activity: Activity As Tolerated, No Driving - Due to seizure activity Prescriptions: Buspirone HCl [Buspar 5 mg Tablet] 1 tab PO BID 30 Days #60 tab Levetiracetam [Keppra 500 mg Tablet] 500 mg PO Q12 #60 tablet Venlafaxine HCl ER [Effexor Xr 37.5 mg Cap.sr] 37.5 mg PO DAILY 30 Days #30 cap.sr.24h Home Medications: Buspirone HCl [Buspar 5 mg Tablet] 1 tab PO BID 30 Days #60 tab 11/09/18 Levetiracetam [Keppra 500 mg Tablet] 500 mg PO Q12 #60 tablet 11/09/18 Nicotine [Nicoderm 14 mg/24 Hr Transdermal Patch] 1 each TD DAILY patch.td24 11/09/18 Venlafaxine HCl ER [Effexor Xr 37.5 mg Cap.sr] 37.5 mg PO DAILY 30 Days #30 cap.sr.24h 11/09/18 History of Present Illness Patient complains of: Patient found down in the field. Exhibited status epilepticus in route to the hospital. History of Present Illness: [place] is a 42 year old male with a history of methamphetamine use. He was evidently found unresponsive on the roadside. EMS was called and transported the patient to the hospital. In route he experienced multiple tonic-clonic seizures qualifying for status epilepticus. He was treated with benzodiazepines and due to his obtunded state he was intubated and referred to the hospital service for admission. Hospital Course Hospital Course: The patient had a fairly unremarkable hospital course. He did have an EEG that was abnormal but he was intubated and medicated. He is on Keppra for treatment of the seizure episodes. He was treated with aggressive fluid resuscitation and his acute kidney injury and lactic acidosis resolved. He was able to be weaned from sedation finally achieving extubation. He was seen by psychiatry and he requested information on detox/rehab programs. The patient was transferred to [facility] from the ICU yesterday. He is doing well today. His blood work has normalized. An appointment at [facility] has been set up for the patient. He was given written prescriptions for his medications and he will de cide which pharmacy to use as he does not have any insurance or prescription coverage. Physical Exam Vital Signs: Temp Pulse Resp BP Pulse Ox 98.2 F 76 16 132/76 H 99 11/09/18 07:37 11/09/18 07:37 11/09/18 07:37 11/09/18 07:37 11/09/18 07:37 Intake & Output 11/08/18 11/09/18 11/10/18 06:59 06:59 06:59 Intake Total 1676 422 Output Total 2320 50 Balance -644 372 Weight 75.9 kg 76 kg General appearance: PRESENT: no acute distress, cooperative, well-developed Head exam: PRESENT: atraumatic, normocephalic Respiratory exam: PRESENT: clear to auscultation aime, symmetrical, unlabored. ABSENT: accessory muscle use, rales, rhonchi, tachypnea, wheezes Cardiovascular exam: PRESENT: RRR, +S1, +S2 GI/Abdominal exam: PRESENT: normal bowel sounds, soft. ABSENT: distended, tenderness Rectal exam: PRESENT: deferred Gentrourinary exam: ABSENT: indwelling catheter Neurological exam: PRESENT: alert, awake, oriented to person, oriented to place, oriented to time, oriented to situation, CN II-XII grossly intact Psychiatric exam: PRESENT: appropriate affect. ABSENT: agitated, anxious Focused psych exam: ABSENT: delusional, restlessness Results Laboratory Results: 11/08/18 08:52 11/08/18 08:52 11/02/18 11:15 Creatine Kinase 169 Impressions: Cervical Spine CT 11/02/18 11:06 IMPRESSION: NO ACUTE OR SIGNIFICANT FINDINGS IN THE CERVICAL SPINE. Head CT 11/02/18 11:06 IMPRESSION: NORMAL BRAIN CT WITHOUT CONTRAST. EVIDENCE OF ACUTE STROKE: NO. Guidance Fluoroscopy 11/02/18 12:34 IMPRESSION: Lumbar puncture under fluoroscopy. No immediate complication. Lumbar Puncture 11/02/18 13:00 IMPRESSION: Lumbar puncture under fluoroscopy. No immediate complication. Chest X-Ray 11/06/18 08:05 IMPRESSION: 1. Stable examinations since the prior study dated 11/05/2018. No acute pulmonary findings. Qualifiers - * PATIENT BEING DISCHARGED WITH ANY OF THE FOLLOWING DIAGNOSIS: No Acute Heart Failure - Is this a Heart Failure Patient?: No Plan Discharge Plan: Discharge to home. Continue Keppra along with his venlafaxine. [facility] and he should be referred to neurology. Time Spent: Greater than 30 Minutes
== END 2018-11-09 11:11 | disposition home or self-care (01) | DRG 917 ==
LOC: ER 10:56 → EH 13:14 → ICU 19:25 → 3N 11-08 14:26
PROVIDERS: ADMIT Internal Medicine; ATTEND Internal Medicine
PROC: 009U3ZX Drainage of Spinal Canal, Percutaneous Approach, Diagnostic (ICD-10-PCS; principal; 2018-11-02)
PROC: B01BZZZ Fluoroscopy of Spinal Cord (ICD-10-PCS; 2018-11-02)
PROC: 0BH17EZ Insertion of Endotracheal Airway into Trachea, Via Natural or Artificial Opening (ICD-10-PCS; 2018-11-02)
PROC: 5A1945Z Respiratory Ventilation, 24-96 Consecutive Hours (ICD-10-PCS; 2018-11-02)
PROC: 0BH17EZ Insertion of Endotracheal Airway into Trachea, Via Natural or Artificial Opening (ICD-10-PCS; 2018-11-05)
PROC: 5A1945Z Respiratory Ventilation, 24-96 Consecutive Hours (ICD-10-PCS; 2018-11-05)
DX: T43.621A Poisoning by amphetamines, accidental (unintentional), initial encounter (principal); J96.01 Acute respiratory failure with hypoxia; E87.2 Acidosis; N17.9 Acute kidney failure, unspecified; F15.90 Other stimulant use, unspecified, uncomplicated; G40.901 Epilepsy, unspecified, not intractable, with status epilepticus; E86.0 Dehydration; T67.9XXA Effect of heat and light, unspecified, initial encounter; X32.XXXA Exposure to sunlight, initial encounter; Y92.413 State road as the place of occurrence of the external cause; Z78.1 Physical restraint status; Z59.0 Homelessness; Z59.7 Insufficient social insurance and welfare support
CPT/HCPCS: 36415; 36600; 51702; 62270; 70450; 71045; 72125; 77002; 80048; 80053; 80307; 81001; 82550; 82803; 82945; 83605; 83735; 84157; 85025; 85610; 85730; 86701; 87040; 87070; 87077; 87186; 87205; 89050; 93005; 93010; 94002; 94003; 94660; 95819; 96361; 96365; 96368; 96375; 99291; J0696; J1100; J1200; J1630; J1644; J1885; J1953; J2060; J2250; J2270; J2704; J3010; J3370; J3490; J7030; J7060; S0164